=== PATIENT | female | born 1990 | race African-American/Black ===

== ENCOUNTER 2023-05-05 19:51 | Emergency (ER) | payer SELFPAY ==
[2023-05-05 19:52] VITALS: BP 145/86; PULSE 91; RESP 24; TEMP 36; O2SAT 100; BMI 35.2
--- NOTE | 2023-05-05 21:23 | EX.ED.DYSGE1 ---
HPI History of Present Illness Chief Complaint: Dental Informant: patient Narrative Narrative: Patient presenting with a tooth ache right maxillary for the past 3 days. Gradual in onset. No obvious etiology. She states it is radiating back into her right posterior aspect of her face, head with a headache, sometimes in the ear but she has no hearing changes or otorrhea. States the pain was really worse today. She denies any rhinorrhea or congestion. No fevers or chills. No purulent nasal discharge or other discharge from her mouth or bleeding. No sore throat. PFSH PFSH Medical History Anxiety Asthma Depression GERD (gastroesophageal reflux disease) Irregular heart beat Kidney stones Migraines Smoker Home Medications amoxicillin 875 mg-potassium clavulanate 125 mg tablet 875 mg (0.875 x 875-125 mg) PO Q12H #20 TABLETS 05/05/23 [Rx Last Taken Unknown] Allergy/AdvReac Type Severity Reaction Status Date / Time aspirin Allergy Hives Verified 05/05/23 19:54 iodine Allergy Hives Verified 05/05/23 19:54 Sulfa (Sulfonamide Allergy Hives Verified 05/05/23 19:54 Antibiotics) Surgical History History of History of cholecystectomy Social History Smoking Status: Current every day smoker ROS ROS ED Constitutional Constitutional ED: Denies chills or fever(s) Eyes Eyes: Denies change in vision or double vision ENT ENT ED: Reports as per HPI, dental pain, facial pain and sinus pain; Denies throat swelling Cardiovascular Cardiovascular: Denies chest pain or palpitations Respiratory/Chest Respiratory/Chest: Denies cough or dyspnea Gastrointestinal Gastrointestinal: Denies abdominal pain, nausea or vomiting Integumentary Denies abscess or rash Neurologic Neurologic: Reports headache(s); Denies paresthesias or weakness EXAM Physical Exam Const Vital Signs: 05/05/23 19:52 Temperature 96.8 F L Temperature Source Temporal Pulse Rate 91 Respiratory Rate 24 H Blood Pressure 145/86 H Blood Pressure Mean 105 Pulse Ox 100 Oxygen Delivery Method Room Air Positive well nourished and well developed General Appearance ED: well developed and NAD HEENT HEENT Narrative: Patient does have point tenderness in 1 particular area of the right maxillary sinus which is normal-appearing externally. No nasal purulent discharge. No significant edema. Dentition is all normal appearing, gingiva is all normal appearing, and there is no dental tenderness on percussion. In palpating superior to the dentition in the periapical areas, there is no tenderness or abscess. She has no trismus. The rest of intraoral exam is normal including normal Stensen's duct bilaterally, and there is no tenderness at the parotid or swelling there. Throat: posterior oropharynx normal Eyes PERRL and EOMs intact bilaterally Neck no lymphadenopathy and supple Resp normal respiratory effort Neuro oriented x3 and CN's II-XII intact bilaterally Sensorium / Orientation: alert Gait (Neuro): normal gait Psych mental status grossly normal and thought process normal Skin no rashes or lesions noted and no wounds MDM MDM MDM Narrative Medical decision making narrative: As I discussed with the patient I do not think that this is a dental in origin. I think she has maxillary sinusitis for unknown reason along with a sinus headache. I think it is reasonable to treat her empirically with an antibiotic, but I also recommend a decongestant to see if she can drain the sinus which may give her quicker relief she is comfortable with that plan. Nursing discussed with me at discharge that the patient then told her about black nipple discharge that she has been having for months. She does not have a doctor in the region. She was referred to the next doctor on the unassigned list for primary care as well as SENIOR ATTORNEY regarding the nipple discharge Discharge Plan Triage Chief Complaint: Dental ED Provider: Giovani Ibrahim Dx/Rx/DC Orders Clinical Impression: Sinus headache, Nipple discharge, Right maxillary sinusitis Instructions: ED Sinus Headache, ED Sinusitis (Antibiotic Treatment) Prescriptions: New amoxicillin-pot clavulanate [amoxicillin-pot clavulanate] 875-125 mg tablet 875 mg PO Q12H Qty: 20 0RF Primary Care Provider: Care Physician,No Primary Referrals: Elle Quiroga MD [Med Staff - Active Staff] - (SENIOR ATTORNEY) Abram Carvajal MD [Med Staff - Active Staff] - Care Physician,No Primary [Primary Care Provider] - Activity Restrictions/Additional Instructions: May try using a nasal spray containing oxymetazoline or phenylephrine, spray 2 sprays up into your right nostril, after 10 or 15 minutes, hold your nose shut and blow gently into you feel your ears gently pop, and hold for a breath as long as you can, and this may help pop your sinus open and allow quick drainage and pain relief. Disposition Disposition: Home, Self Care
[2023-05-05] MEDS: Amox/Clavulanate 875 MG Tablet PO (21:29)
[2023-05-05 22:06] VITALS: BP 135/80; PULSE 79; RESP 16; O2SAT 99
== END 2023-05-05 22:07 | disposition home or self-care (01) ==
PROVIDERS: Emergency Provider Emergency Medicine; Visit Provider Emergency Medicine
DX: J32.0 Chronic maxillary sinusitis (principal); N64.52 Nipple discharge; F17.200 Nicotine dependence, unspecified, uncomplicated
CPT/HCPCS: 99282

== ENCOUNTER 2023-05-29 15:06 | Emergency (ER) | payer MEDICAID, SELFPAY ==
[2023-05-29 15:07] VITALS: BP 137/98; PULSE 107; RESP 20; TEMP 37.2; O2SAT 98; BMI 35.8
--- NOTE | 2023-05-29 15:21 | EX.ED.DYSGE1 ---
HPI History of Present Illness Chief Complaint: Dental Detail of Chief Complaint: Sinus infection and dental pain Informant: patient Narrative Narrative: Patient presents secondary to right maxillary sinus infection as well as left dental pain. She states she was seen here in the ER about 2 and half weeks ago and diagnosed with this finding you situs. She was treated with Augmentin. She reported no improvement after the antibiotic but did not seek further treatment. Earlier this week she had a root canal on one of the molars for her left maxillary surface. She has had some increased pressure to that side and is not currently on an antibiotic. She states her pain is doing well with Tylenol and ibuprofen, but is concerned that she needs an antibiotic. She is using Afrin nasal spray. She reports a single fever with temperature measurement of 100. PFSH PFSH Medical History Anxiety Asthma Depression GERD (gastroesophageal reflux disease) Irregular heart beat Kidney stones Migraines Smoker Home Medications amoxicillin 875 mg-potassium clavulanate 125 mg tablet 875 mg (0.875 x 875-125 mg) PO Q12H #20 TABLETS 05/05/23 [Rx Last Taken Unknown] cefdinir 300 mg capsule 300 mg PO BID #20 caps 05/29/23 [Rx Last Taken Unknown] Allergy/AdvReac Type Severity Reaction Status Date / Time aspirin Allergy Hives Verified 05/29/23 15:07 iodine Allergy Hives Verified 05/29/23 15:07 Sulfa (Sulfonamide Allergy Hives Verified 05/29/23 15:07 Antibiotics) Surgical History History of History of cholecystectomy Social History Smoking Status: Current every day smoker tobacco type: cigarettes ROS ROS ED Constitutional Constitutional ED: Denies chills or fever(s) ENT ENT ED: Reports other Details: Right maxillary sinus pressure. Left-sided dental pain. ; Denies rhinorrhea or sore throat Cardiovascular Cardiovascular: Denies chest pain Respiratory/Chest Respiratory/Chest: Denies cough or dyspnea Gastrointestinal Gastrointestinal: Denies abdominal pain, nausea or vomiting Neurologic Neurologic: Denies headache(s) Psychiatric Psychiatric: Denies anxiety or depression Allergic/Immunologic Allergic/Immunologic ED: Denies lip swelling or urticaria EXAM Physical Exam Const Vital Signs: 05/29/23 15:07 Temperature 99 F Temperature Source Temporal Pulse Rate 107 H Respiratory Rate 20 H Blood Pressure 137/98 H Blood Pressure Mean 111 Pulse Ox 98 Oxygen Delivery Method Room Air Positive well nourished and well developed General Appearance ED: well developed HEENT HEENT Narrative: No facial edema or erythema. Intraoral examination reveals no significant gum edema. Posterior pharynx exam is normal. Patient does have significant tenderness with palpation of the right maxilla. Eyes EOMs intact bilaterally Chest Wall inspection of chest normal and palpation of chest normal Resp normal respiratory effort and clear to auscultation bilaterally Cardio regular rate and regular rhythm GI non-tender Palpation: soft Neuro oriented x3 and no sensory deficits noted Motor Exam: strength 5/5 throughout Psych mental status grossly normal Skin no rashes or lesions noted MDM MDM MDM Narrative Medical decision making narrative: Patient was recently on a course of Augmentin and reported no significant improvement in her sinus symptoms. Will treat her with Omnicef to cover both oral and sinus organisms. She will follow-up with her dentist and I will also give her information for ENT referral if her sinusitis is not improving. Discharge Plan Triage Chief Complaint: Dental ED Provider: Morena Michaels Dx/Rx/DC Orders Clinical Impression: Sinusitis, Pain, dental Instructions: ED Dental Pain, ED Sinusitis (Antibiotic Treatment) Prescriptions: New cefdinir 300 mg capsule 300 mg PO BID Qty: 20 0RF No Action amoxicillin-pot clavulanate [amoxicillin-pot clavulanate] 875-125 mg tablet 875 mg PO Q12H Qty: 20 0RF Primary Care Provider: Care Physician,No Primary Referrals: Carlos Avila MD [Med Staff - Active Staff] - As Needed Care Physician,No Primary [Primary Care Provider] - Activity Restrictions/Additional Instructions: If your sinus symptoms are not improved with the second round of antibiotics, you can follow-up with ENT. Disposition Disposition: Home, Self Care
== END 2023-05-29 15:43 | disposition home or self-care (01) ==
PROVIDERS: Emergency Provider Emergency Medicine; Visit Provider Emergency Medicine
DX: K08.89 Other specified disorders of teeth and supporting structures (principal); J32.9 Chronic sinusitis, unspecified; F17.210 Nicotine dependence, cigarettes, uncomplicated
CPT/HCPCS: 99282

== ENCOUNTER 2023-10-28 04:12 | Emergency (ER) | payer MEDICAID, SELFPAY ==
[2023-10-28 04:12] VITALS: BP 142/92; PULSE 91; RESP 16; TEMP 36.4; O2SAT 98; BMI 38.2
--- NOTE | 2023-10-28 04:40 | EDS_ITS ---
HPI History of Present Illness Chief Complaint: Dental Informant: patient and spouse/S.O. Narrative Narrative: Patient is 33-year-old female who reports a past medical history of recurrent dental infections as well as depression anxiety and asthma. She states she has a broken upper right tooth and she is scheduled to see a dentist in the next few weeks. However the last few days she has been having increased right upper dental pain and some facial swelling and has concern for developing infection and therefore comes in for evaluation PFS PFS Medical History Anxiety Asthma Depression GERD (gastroesophageal reflux disease) Irregular heart beat Kidney stones Migraines Smoker Home Medications ?Medication ?Instructions ?Recorded ?Last Taken ?Type amoxicillin 875 mg-potassium 875 mg PO Q12H #20 TABLETS 05/05/23 Unknown Rx clavulanate 125 mg tablet cefdinir 300 mg capsule 300 mg PO BID #20 caps 05/29/23 Unknown Rx clindamycin HCl 300 mg capsule 300 mg PO 4X/DAY 10 days #40 10/28/23 Unknown Rx (Cleocin HCl) CAPSULES Allergy/AdvReac Type Severity Reaction Status Date / Time aspirin Allergy Hives Verified 10/28/23 04:18 iodine Allergy Hives Verified 10/28/23 04:18 Sulfa (Sulfonamide Allergy Hives Verified 10/28/23 04:18 Antibiotics) Surgical History History of History of cholecystectomy Social History Smoking Status: Current every day smoker tobacco type: cigarettes ROS ROS ED Constitutional Constitutional ED: Denies chills or fever(s) ENT ENT ED: Reports other Details: Positive dental pain ; Denies sore throat Cardiovascular Cardiovascular: Denies chest pain Respiratory/Chest Respiratory/Chest: Denies cough or dyspnea Gastrointestinal Gastrointestinal: Denies abdominal pain, diarrhea, nausea or vomiting Genitourinary Genitourinary ED: Denies dysuria Musculoskeletal Musculoskeletal: Denies neck pain Integumentary Denies rash Neurologic Neurologic: Denies headache(s) Hematologic/Lymphatic Hematologic/Lymphatic: Denies easy bleeding or easy bruising Allergic/Immunologic Allergic/Immunologic ED: Denies mouth swelling or tongue swelling EXAM Physical Exam Const Vital Signs: 10/28/23 04:12 10/28/23 05:23 Temperature 97.6 F L 97.9 F Temperature Source Temporal Pulse Rate 91 81 Respiratory Rate 16 16 Blood Pressure 142/92 H 140/68 H Blood Pressure Mean 108 92 Pulse Ox 98 99 Oxygen Delivery Method Room Air Positive well nourished and well developed General Appearance ED: well developed; Negative for pallor HEENT Reports moist mucous membranes HEENT Narrative: Dental caries noted without obvious dental abscess No tongue or lip swelling no oral lesions no airway edema or compromise No findings of ANUG Eyes PERRL and EOMs intact bilaterally Neck supple Neck Narrative: No brawny edema in the submental space to suggest Anoop's angina Resp normal respiratory effort and clear to auscultation bilaterally Cardio regular rate and regular rhythm Extremity normal to inspection Neuro oriented x3, CN's II-XII intact bilaterally and no sensory deficits noted Sensorium / Orientation: alert Motor Exam: strength 5/5 throughout Psych mental status grossly normal Skin no rashes or lesions noted General Skin Exam: Negative for jaundice or pallor MDM MDM MDM Narrative Medical decision making narrative: Patient presented ER hypertensive otherwise with stable vitals. History and exam is consistent with dental caries leading to recurrent dental infection. She has no findings of ANUG or Anoop's angina on exam there is no signs of posterior pharynx infection such as strep throat or peritonsillar abscess and she has no airway edema or compromise and therefore do not feel there is need for imaging or laboratory studies. Patient was started on antibiotics secondary to high likelihood of dental infection and she was given a dental block for pain as documented below. However this time as there is no signs of systemic infection or respiratory compromise she is safe for discharge Patient was given a right superior alveolar dental block using 1.5 mL of 2% lidocaine with epinephrine and 1.5 mL of 0.5% Marcaine. Patient achieved good anesthesia with the injection and tolerated procedure well without complication History & Record Review Discussion w/independent historian: Patient and Significant other Discharge Plan Triage Chief Complaint: Dental ED Provider: Darinel Larson Dx/Rx/DC Orders Clinical Impression: Dental infection, Dental caries, History of asthma, History of migraine Prescriptions: New clindamycin HCl [Cleocin HCl] 300 mg capsule 300 mg PO 4X/DAY 10 Days Qty: 40 0RF No Action cefdinir 300 mg capsule 300 mg PO BID Qty: 20 0RF amoxicillin-pot clavulanate [amoxicillin-pot clavulanate] 875-125 mg tablet 875 mg PO Q12H Qty: 20 0RF Primary Care Provider: Care Physician,No Primary Referrals: Care Physician,No Primary [Primary Care Provider] - Activity Restrictions/Additional Instructions: Please follow-up with your dentist for definitive treatment but take the antibiotics as directed to resolve any developing infection. Return to the ER should you have any further concerns Print Language: Spanish Disposition Disposition: Home, Self Care Discharge Date/Time: 10/28/23 05:24
[2023-10-28] MEDS: Lidocaine 2% /Epi 1:100 (20ml) 20 ML VIAL INFILT (04:50)
[2023-10-28] MEDS: Bupivacaine Mpf 0.5% 30 ML VIAL INFILT (04:50)
[2023-10-28] MEDS: Clindamycin HCl 150 MG Capsule 300 MG PO (04:50)
[2023-10-28 05:23] VITALS: BP 140/68; PULSE 81; RESP 16; TEMP 36.6; O2SAT 99
== END 2023-10-28 05:24 | disposition home or self-care (01) ==
PROVIDERS: Emergency Provider Emergency Medicine; Visit Provider Emergency Medicine
DX: K04.7 Periapical abscess without sinus (principal); K02.9 Dental caries, unspecified; J45.909 Unspecified asthma, uncomplicated; F17.210 Nicotine dependence, cigarettes, uncomplicated
CPT/HCPCS: 64999; 99282

== ENCOUNTER 2023-11-07 22:42 | Emergency (ER) | payer MEDICAID, SELFPAY ==
[2023-11-07 22:44] VITALS: BP 132/91; PULSE 86; RESP 18; TEMP 36.9; O2SAT 99; BMI 34.6
--- NOTE | 2023-11-07 23:14 | EX.ED.DYSGE1 ---
HPI History of Present Illness Chief Complaint: Dental Informant: patient Narrative Narrative: Patient is a 33-year-old female who reports she has a broken right molar. She cannot get into see a dentist until next month. She states has been infected over the past 1 to 2 months. She was seen 1 to 2 weeks ago and placed on clindamycin. She states she has been taking the antibiotic as directed but there does not seem to be improvement of symptoms as she has had persistent pain and swelling. She denies any trauma any fever and difficulty breathing or swallowing but secondary to persistent pain and swelling returns for repeat evaluation. [facility] Medical History Depression Anxiety Kidney stones GERD (gastroesophageal reflux disease) Smoker Asthma Irregular heart beat Migraines Home Medications ?Medication ?Instructions ?Recorded ?Last Taken ?Type amoxicillin 875 mg-potassium 875 mg PO Q12H #20 TABLETS 05/05/23 Unknown Rx clavulanate 125 mg tablet cefdinir 300 mg capsule 300 mg PO BID #20 caps 05/29/23 Unknown Rx clindamycin HCl 300 mg capsule 300 mg PO 4X/DAY 10 days #40 10/28/23 Unknown Rx (Cleocin HCl) CAPSULES amoxicillin 875 mg-potassium 1 tab PO BID 10 days #20 tabs 11/07/23 Unknown Rx clavulanate 125 mg tablet oxycodone-acetaminophen 5 mg-325 1 tab PO Q6H PRN pain 3 days #12 11/07/23 Unknown Rx mg tablet (Percocet) tabs Allergy/AdvReac Type Severity Reaction Status Date / Time aspirin Allergy Hives Verified 11/07/23 22:53 Sulfa (Sulfonamide Allergy Hives Verified 11/07/23 22:53 Antibiotics) Family History no significant family his Surgical History History of History of cholecystectomy Social History Smoking Status: Current every day smoker tobacco type: cigarettes ROS ROS ED Constitutional Constitutional ED: Denies chills or fever(s) ENT ENT ED: Reports other Details: Positive dental pain and facial swelling ; Denies sore throat Cardiovascular Cardiovascular: Denies chest pain Respiratory/Chest Respiratory/Chest: Denies cough or dyspnea Gastrointestinal Gastrointestinal: Denies abdominal pain, diarrhea, nausea or vomiting Genitourinary Genitourinary ED: Denies dysuria Musculoskeletal Musculoskeletal: Denies myalgias or neck pain Integumentary Denies rash Neurologic Neurologic: Denies headache(s) Hematologic/Lymphatic Hematologic/Lymphatic: Denies easy bleeding or easy bruising Allergic/Immunologic Allergic/Immunologic ED: Denies mouth swelling or tongue swelling EXAM Physical Exam Const Vital Signs: 11/07/23 22:44 Temperature 98.5 F Temperature Source Temporal Pulse Rate 86 Respiratory Rate 18 Blood Pressure 132/91 H Blood Pressure Mean 104 Pulse Ox 99 Oxygen Delivery Method Room Air Positive well nourished and well developed General Appearance ED: well developed HEENT Reports moist mucous membranes HEENT Narrative: Patient has dental caries/a broken upper right molar as stated without oral lesions tongue or lip swelling airway edema or compromise or obvious dental abscess No signs of ANUG Eyes PERRL and EOMs intact bilaterally Neck supple Neck Narrative: Positive anterior cervical lymphadenopathy noted No brawny edema in the submental space to suggest Anoop's angina Resp normal respiratory effort and clear to auscultation bilaterally Cardio regular rate and regular rhythm Extremity normal to inspection Neuro oriented x3, CN's II-XII intact bilaterally and no sensory deficits noted Sensorium / Orientation: alert Motor Exam: strength 5/5 throughout Psych mental status grossly normal Skin no rashes or lesions noted Skin Narrative: Soft tissue swelling of the right anterior cheek without overlying erythema or warmth MDM MDM MDM Narrative Medical decision making narrative: Patient arrived to the ER hypertensive otherwise with stable vital. History and exam is consistent with dental caries leading to underlying dental infection. There is no obvious abscess on the gingival surface to warrant incision and drainage. She does not have physical exam findings to suggest Anoop's angina and there are no signs of ANUG present on exam either. As she was recently antibiotics we did discuss potentially imaging and/or blood work but as she has no signs of respiratory distress or airway compromise and she is afebrile and has not spiked fevers at home we will forego testing. Patient will have her antibiotic changed to Augmentin which has helped her in the past and she is otherwise safe for discharge The patient was given a right superior alveolar dental block using 1.5 mL of 1% lidocaine with epinephrine and 1.5 mL of 0.5% Marcaine. Patient achieved good anesthesia with the injection and tolerated procedure well without complication History & Record Review Discussion w/independent historian: Patient Discharge Plan Triage Chief Complaint: Dental ED Provider: Darinel Larson Dx/Rx/DC Orders Clinical Impression: Dental infection, Dental caries, Hypertension Instructions: ED Dental Pain, ED Dental Abscess Prescriptions: New amoxicillin-pot clavulanate 875-125 mg tablet 1 tab PO BID 10 Days Qty: 20 0RF oxycodone-acetaminophen [Percocet] 5-325 mg tablet 1 tab PO Q6H PRN (Reason: pain) 3 Days Qty: 12 0RF No Action cefdinir 300 mg capsule 300 mg PO BID Qty: 20 0RF amoxicillin-pot clavulanate [amoxicillin-pot clavulanate] 875-125 mg tablet 875 mg PO Q12H Qty: 20 0RF clindamycin HCl [Cleocin HCl] 300 mg capsule 300 mg PO 4X/DAY 10 Days Qty: 40 0RF Primary Care Provider: Care Physician,No Primary Referrals: Care Physician,No Primary [Primary Care Provider] - Activity Restrictions/Additional Instructions: Please keep your appointment with your dentist as directed for definitive treatment of your dental caries and infected tooth. Take antibiotic as directed to resolve the infection in the meantime and return to the ER should you have any further concerns Print Language: Prydeinig Disposition Disposition: Home, Self Care Discharge Date/Time: 11/07/23 23:42
[2023-11-07] MEDS: Amox/Clavulanate 875 MG Tablet PO (23:19)
[2023-11-07] MEDS: Bupivacaine Mpf 0.5% 30 ML VIAL 10 ML INFILT (23:27)
== END 2023-11-07 23:42 | disposition home or self-care (01) ==
PROVIDERS: Emergency Provider Emergency Medicine; Visit Provider Emergency Medicine
DX: K04.7 Periapical abscess without sinus (principal); K02.9 Dental caries, unspecified; I10 Essential (primary) hypertension; F17.210 Nicotine dependence, cigarettes, uncomplicated
CPT/HCPCS: 64999; 99282

== ENCOUNTER 2024-01-12 16:19 | Emergency (ER) | payer MEDICAID, SELFPAY ==
[2024-01-12 16:20] VITALS: BP 146/84; PULSE 86; RESP 15; TEMP 36.2; O2SAT 99; BMI 34.5
--- NOTE | 2024-01-12 16:33 | EX.ED.UPPERE ---
HPI History of Present Illness Chief Complaint: [facility] Medical History Depression Anxiety Kidney stones GERD (gastroesophageal reflux disease) Smoker Asthma Irregular heart beat Migraines Home Medications ?Medication ?Instructions ?Recorded ?Last Taken ?Type amoxicillin 875 mg-potassium 875 mg PO Q12H #20 TABLETS 05/05/23 Unknown Rx clavulanate 125 mg tablet cefdinir 300 mg capsule 300 mg PO BID #20 caps 05/29/23 Unknown Rx clindamycin HCl 300 mg capsule 300 mg PO 4X/DAY 10 days #40 10/28/23 Unknown Rx (Cleocin HCl) CAPSULES amoxicillin 875 mg-potassium 1 tab PO BID 10 days #20 tabs 11/07/23 Unknown Rx clavulanate 125 mg tablet oxycodone-acetaminophen 5 mg-325 1 tab PO Q6H PRN pain 3 days #12 11/07/23 Unknown Rx mg tablet (Percocet) tabs doxycycline hyclate 100 mg capsule 100 mg PO BID #14 caps 01/12/24 Unknown Rx Allergy/AdvReac Type Severity Reaction Status Date / Time aspirin Allergy Hives Verified 01/12/24 16:21 Sulfa (Sulfonamide Allergy Hives Verified 01/12/24 16:21 Antibiotics) Surgical History History of History of cholecystectomy Social History Smoking Status: Current every day smoker tobacco type: cigarettes EXAM Physical Exam Const Vital Signs: 01/12/24 16:20 Temperature 97.2 F L Temperature Source Temporal Pulse Rate 86 Respiratory Rate 15 Blood Pressure 146/84 H Blood Pressure Mean 104 Pulse Ox 99 Oxygen Delivery Method Room Air MDM MDM MDM Narrative Medical decision making narrative: HISTORY OF PRESENT ILLNESS: 33-year-old female presents with 4 finger edema and redness. She states this been ongoing for the past 3 to 4 days. Notes 2 days ago she took a sterile needle and lanced the area of swelling and it drained green fluid. She notes continued drainage since then. No she is not using salt baths but symptoms have worsened over the last day to 2 days. Denies fever or history of diabetes. REVIEW OF SYSTEMS: Pertinent positives: Finger pain and swelling Pertinent negatives: Numbness, tingling, loss sensation PHYSICAL EXAM: Nursing triage notes reviewed, Vital signs reviewed Constitutional: please see mdm Neuro: intact 5/5 strength with ok sign (median), intact finger abduction (ulnar) intact wrist extension (radial n). Intact sensation in the radial, ulnar, and median nerve distributions. Skin: Erythema noted over the distal fourth digit of the right hand, no obvious trauma, MEDICAL DECISION MAKING: Chief Complaint: Finger swelling [facility] [place] Narrative: Patient was hemodynamically stable, afebrile and nontoxic-appearing. Exam consistent with paronychia I considered the following differential diagnosis: Paronychia, felon, cellulitis Will give MRSA coverage with doxycycline for 7 days given sulfa allergy. First dose of antibiotic was given here in the emergency department gave strict return precautions and follow-up instructions. The patient and/or family, caregivers express understanding. The patient and/or family, caregivers agrees with the plan. Shared decision making: I will have a discussion with the patient and or visitors regarding risk/benefits of further testing or admission. They will be made aware of of the risk/benefits inherent in this decision they will be given the opportunity to voice understanding. Total critical care time today provided was at least 0 minutes. This excludes separately billable procedures. Critical care time (if documented) is secondary to the patient having high probability of clinically significant/life threatening deterioration in the patient's condition which required my urgent intervention. Impression: 1. Finger. 2. Paronychia Dispo: Discharge home This note was generated with [email or web address] dictation software. It may contain incorrect words, spelling, and punctuation that were not noted in review of the chart prior to signing. Discharge Plan Triage Chief Complaint: Upper Extremity Injury ED Provider: Yash Caro Dx/Rx/DC Orders Instructions: ED Paronychia of the Finger or Toe Prescriptions: New doxycycline hyclate 100 mg capsule 100 mg PO BID Qty: 14 0RF No Action cefdinir 300 mg capsule 300 mg PO BID Qty: 20 0RF amoxicillin-pot clavulanate [amoxicillin-pot clavulanate] 875-125 mg tablet 875 mg PO Q12H Qty: 20 0RF clindamycin HCl [Cleocin HCl] 300 mg capsule 300 mg PO 4X/DAY 10 Days Qty: 40 0RF amoxicillin-pot clavulanate 875-125 mg tablet 1 tab PO BID 10 Days Qty: 20 0RF oxycodone-acetaminophen [Percocet] 5-325 mg tablet 1 tab PO Q6H PRN (Reason: pain) 3 Days Qty: 12 0RF Primary Care Provider: Care Physician,No Primary Referrals: Oren Ferrer MD [Med Staff - Active Staff] - Care Physician,No Primary [Primary Care Provider] - Activity Restrictions/Additional Instructions: Thank you for trusting us with your care today! Please take Tylenol (2 pills, 650 mg), ibuprofen (2 pills, 400 mg) every 6 hours as needed for pain and fever control. Please take antibiotic until course complete. Please use warm compress or warm soaks to encourage drainage. If you develop complete swelling of your entire finger, vomiting, chills, fever or other systemic signs please return immediately. Please return to the emergency department if your symptoms change or worsen. Please follow with your primary care physician for further outpatient evaluation and management. If your symptoms do not completely resolve you can follow-up with a hand surgeon as listed above Dr. Ferrer. Print Language: Pashto Disposition Disposition: Home, Self Care
[2024-01-12] MEDS: Doxycycline 100 MG CAPSULE PO (16:46)
[2024-01-12 17:00] VITALS: BP 130/70; PULSE 85; RESP 16; TEMP 36.7; O2SAT 99
== END 2024-01-12 17:00 | disposition home or self-care (01) ==
LOC: ED 16:55
PROVIDERS: Emergency Provider Emergency Medicine; Visit Provider Emergency Medicine
DX: L03.011 Cellulitis of right finger (principal); F17.210 Nicotine dependence, cigarettes, uncomplicated
CPT/HCPCS: 99283

== ENCOUNTER 2025-05-05 14:02 | Emergency (ER) | payer MEDICAID, SELFPAY ==
[2025-05-05 14:04] VITALS: BP 148/113; PULSE 98; RESP 16; TEMP 37.1; O2SAT 99; BMI 36.3
[2025-05-05 14:25] VITALS: O2SAT 99
--- NOTE | 2025-05-05 14:28 | NURSING ---
patient complaining of 7/10 headache and 9/10 neck pain and stiffness. congestion for 3 days accompanied by non productive cough.
--- NOTE | 2025-05-05 14:53 | EX.ED.VIS.UR ---
HPI HPI - URI History of Present Illness Chief Complaint: Shortness of Breath Informant: patient Onset/Context/Timing Onset: Days Context: Gradual Onset Timing: Continuous Current Severity: Mild Maximum Severity: Mild Associated Symptoms Associated Symptoms: Positive for Nasal Congestion, Headache, Myalgias and Nonproductive cough Narrative Narrative: 35-year-old female with past medical history of asthma and kidney stones. Said since [facility] she has felt sick. Nasal congestion nonproductive cough. Fever and chills with a temperature as high as 101.5. 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 States many of the residents there are currently ill. She denies vomiting or diarrhea. She denies dysuria. Prior similar symptoms: Yes Recent Illness/Hospitalization: No ROS ROS ED ROS Narrative Nonproductive cough. Fever and chills. Body aches. Constitutional Constitutional ED: Reports chills and fever(s) Eyes Eyes: Denies blurry vision ENT ENT ED: Reports rhinorrhea; Denies ear pain or sore throat Cardiovascular Cardiovascular: Denies chest pain Respiratory/Chest Respiratory/Chest: Reports cough and dyspnea; Denies dyspnea on exertion Gastrointestinal Gastrointestinal: Denies abdominal pain, diarrhea, nausea or vomiting Genitourinary Genitourinary ED: Denies dysuria or hematuria Musculoskeletal Musculoskeletal: Denies arthralgias Integumentary Denies abscess Neurologic Neurologic: Reports headache(s) Psychiatric Psychiatric: Denies anxiety or depression Endocrine Endocrinology: Denies cold intolerance Hematologic/Lymphatic Hematologic/Lymphatic: Denies easy bleeding Allergic/Immunologic Allergic/Immunologic ED: Denies mouth swelling, tongue swelling or urticaria PFSH PFS Medical History Depression Anxiety Kidney stones GERD (gastroesophageal reflux disease) Smoker Asthma Irregular heart beat Migraines Home Medications ?Medication ?Instructions ?Recorded ?Last Taken ?Type amoxicillin 875 mg-potassium 875 mg PO Q12H #20 TABLETS 05/05/23 Unknown Rx clavulanate 125 mg tablet cefdinir 300 mg capsule 300 mg PO BID #20 caps 05/29/23 Unknown Rx clindamycin HCl 300 mg capsule 300 mg PO 4X/DAY 10 days #40 10/28/23 Unknown Rx (Cleocin HCl) CAPSULES amoxicillin 875 mg-potassium 1 tab PO BID 10 days #20 tabs 06/30/24 Unknown Rx clavulanate 125 mg tablet oxycodone-acetaminophen 5 mg-325 1 tab PO Q6H PRN pain 3 days #12 11/07/23 Unknown Rx mg tablet (Percocet) tabs doxycycline hyclate 100 mg capsule 100 mg PO BID #14 caps 01/12/24 Unknown Rx Allergy/AdvReac Type Severity Reaction Status Date / Time aspirin Allergy Hives Verified 05/05/25 14:05 Sulfa (Sulfonamide Allergy Hives Verified 05/05/25 14:05 Antibiotics) Surgical History History of History of cholecystectomy Social History Smoking Status: Current every day smoker tobacco type: cigarettes EXAM Physical Exam Narrative Exam Narrative: Well-appearing 35-year-old female. Vital signs are stable afebrile does not look septic toxic no acute distress. Pulse ox 99% on room air no hypoxia. H EENT exam pupils round react to light. Extra motions are intact. No facial droop. No frontal or maxillary sinus tenderness. Moist mucous membranes. Posterior pharynx unremarkable. No trouble swallowing or breathing. No stridor or drooling. TMs unremarkable. Neck nontender no lymphadenopathy. No meningismus. Able to touch chin to chest. Back nontender. Lungs clear to auscultation bilaterally. Heart regular rhythm rate about 95 no murmur. Chest wall ribs nontender. Abdomen soft nontender. Moving all 4 extremities. Normal range of motion. Normal strength. Nontender no edema. Neurologically she is awake alert. Answering questions following commands. Normal neurologic exam. Const Vital Signs: 05/05/25 14:04 05/05/25 14:25 05/05/25 16:02 Temperature 98.8 F Temperature Source Oral Pulse Rate 98 83 Respiratory Rate 16 Respiratory Effort Normal Respiratory Depth Normal Respiratory Pattern Normal Blood Pressure 148/113 H Blood Pressure Mean 124 Pulse Ox 99 96 Oxygen Delivery Method Room Air Room Air Room Air MDM MDM MDM Narrative Medical decision making narrative: 35-year-old suspect viral URI. She did want me to check her for COVID and flu which have been sent. Chest x-ray to rule out pneumonia. Otherwise her exam is benign she be given some Tylenol. She does not need lab work. Repeat exam patient is doing well at 3:55 PM. Resting comfortably. We discussed her negative chest x-ray. Awaiting the COVID and flu swab. Although her report is negative she will be treated as a viral syndrome. History & Record Review Discussion w/independent historian: Patient Additional record(s) reviewed:: Prior outpatient record, Prior ED visit and Prior labs Lab Data Attestation: I reviewed the patient's lab results. Lab results narrative: COVID, flu and RSV are all negative. Radiography Chest X-Ray - ED: 2 View, Read by ED Physician, Normal, Heart, Lungs, Mediastinum, Bony Structures, No Acute Disease and Chronic Changes Diagnostic Testing: Clinical Impression(s) from Imaging Studies Chest X-Ray 05/05/25 15:10 IMPRESSION: No focal airspace consolidation. Minimal peribronchial cuffing which can be seen with bronchiolitis/viral process. Reading Location: [facility] Chest x-ray, 2 views, AP and lateral, interpreted both by myself and the radiologist. Shows normal cardiac silhouette. Bronchial cuffing consistent with a viral syndrome. No pneumonia. Normal lung sidhu otherwise. No effusion. No chronic changes. Discharge Plan Triage Chief Complaint: Shortness of Breath ED Provider: Darci Joyce Dx/Rx/DC Orders Clinical Impression: Viral syndrome Instructions: ED Viral Syndrome (Adult) Prescriptions: No Action cefdinir 300 mg capsule 300 mg PO BID Qty: 20 0RF amoxicillin-pot clavulanate [amoxicillin-pot clavulanate] 875-125 mg tablet 875 mg PO Q12H Qty: 20 0RF doxycycline hyclate 100 mg capsule 100 mg PO BID Qty: 14 0RF clindamycin HCl [Cleocin HCl] 300 mg capsule 300 mg PO 4X/DAY 10 Days Qty: 40 0RF amoxicillin-pot clavulanate 875-125 mg tablet 1 tab PO BID 10 Days Qty: 20 0RF oxycodone-acetaminophen [Percocet] 5-325 mg tablet 1 tab PO Q6H PRN (Reason: pain) 3 Days Qty: 12 0RF Primary Care Provider: Dennise Parson NP Referrals: Care Physician,No Primary [Non-Staff, Medical] Dennise Parson NP, [facility] [employer] [employer] [Primary Care Provider, Medical] - 1 Week if not improving Activity Restrictions/Additional Instructions: Plenty of fluids and rest. Alternate Motrin and Tylenol for body aches and any fever. Follow-up with your primary care provider if not improving or return if worse. Print Language: Qatari Disposition Disposition: Home, Self Care
--- NOTE | 2025-05-05 15:10 | RAD_ITS ---
PROCEDURE: CHEST PA AND LATERAL 05/05/2025 REASON FOR EXAM: COUGH TECHNIQUE: Procedure Code: RADCXR Modality: DX Procedure: CHEST PA AND LATERAL COMPARISON: None FINDINGS: Lungs are clear. There may be minimal peribronchial cuffing present. Cardiomediastinal silhouette is unremarkable. Osseous structures are within normal limits. RAD/Chest PA and Lateral IMPRESSION: No focal airspace consolidation. Minimal peribronchial cuffing which can be se en with bronchiolitis/viral process. Reading [facility]
--- OUTSIDE RECORDS SUMMARY | 2025-05-05 15:23 | XMS RPT_ITS | CCD ---
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 other health professional student that will be observing or involved in the sensitive examination for educational or training purposes was discussed with the Patient or Authorized Billing Services Manager. The Patient or Authorized Billing Services Manager has agreed to proceed with the sensitive examination. (Sensitive examination includes inspection and/or palpation of the breasts, pelvis, prostate and anorectal regions). EXAM: BP 136/86 Ht 5' 3.5 (1.61m) Wt 208 lb (94.3kg) LMP 09/09/2024 BMI 36.26 kg/(m2). GENERAL: pleasant female in no apparent distress HEENT: Normocephalic, atraumatic, mucus membranes moist, and no lesions NECK: Supple, full range of motion, no adenopathy, and thyroid normal DERMATOLOGY: Normal, without lesions, non-icteric, and non-hirsute BREAST: soft, non-tender, symmetric, no dominant mass, normal nipple-areolar complex, no lymphadenopathy, and no nipple discharge CHEST: Normal inspiratory effort ABDOMEN: soft, non-tender, and no masses PELVIC: external genitalia normal, normal Bartholin's glands, urethra, [place]'s glands, no vulvar lesions, no cervical lesions, good vaginal support, physiologic discharge present, normal appearing perineal body and perianal region BIMANUAL: uterus normal size, shape and consistency, no adnexal masses, and non-tender. Limited due to habitus. RECTOVAGINAL: deferred. NEURO: alert and oriented x3,exam grossly non-focal EXTREMITIES: normal ASSESSMENT/PLAN: 1) Health maintenance: Pap done with HPV. Breast Imaging - plans to follow up with high risk breast center. Phone number (more content not included)... Normal [facility] HBV surface Ag Ser Qlon 09-08 HBV surface Ag Ql (S) Negative Normal Negative [facility] Comment on above: Order Comment: Speci men Type: BLOOD SPECIMENOrdering Facility: [facility] Address: [address] [place] [address] Performed By: #### 7 3752-8, 27559-0, 5195-3 ####[facility] [id number] [place] [address] [place] HCV Ab Ser Qlon 09-28-2024 HCV Ab Ql (S) Negative Normal Negative [facility] Comment on above: Order Comment: Speci men Type: BLOOD SPECIMENOrdering Facility: [facility] Address: [address] [place] [address] Result Comment: The result suggests no evidence of infection with Hepatitis C virus. Should recent infection be suspected, repeat testing may be considered 4-6 weeks after this draw. Performed By: #### 1 6128-1 ####[facility] [id number] [place] [address] [place] HIGH RISK HUMAN PAPILLOMA MAGAN (HPV), PCR FOR DETECTION AND GENOTYPINGon 09-28-2024 HPV 16 Ag Ql (Unsp spec) Not detected Normal Not detected [facility] Comment on above: Order Comment: Speci men Type: FLUID SPECIMENOrdering Facility: [facility] Address: [address] [place] [address] Performed By: #### H PVHRT ####[facility] [id number] [place] [address] [place] HPV 18 Ag Ql (Unsp spec) Not detected Normal Not detected [facility] Comment on above: Order Comment: Speci men Type: FLUID SPECIMENOrdering Facility: [facility] Address: [address] [place] [address] Performed By: #### H PVHRT ####[facility] [id number] [place] [address] [place] HPV 31+33+35+39+45+51+52+5 6+58+59+66+68 DNA JL+probe Ql (Cvx) Not detected Normal Not detected [facility] Comment on above: Order Comment: Speci men Type: FLUID SPECIMENOrdering Facility: [facility] Address: [address] [place] [address] Result Comment: High Risk HPV Other Type includes HPV types 31, 33, 35, 39, 45, 51, 52, 56, 58, 59, 66 and 68. Performed By: #### H PVHRT ####[facility] LABCLIA [id number] [place] [address] [place] HIV 1+2 Ab IA Qlon 5 HIV 1 and 2 Ab IA.rapid Nom (S/P/Bld) Normal [facility] Comment on above: Order Comment: Speci men Type: BLOOD SPECIMENOrdering Facility: [facility] Address: [address] [place] [address] Result Comment: Test not indicated. Performed By: #### 7 3752-8, 96898-3, 5195-3 ####[facility] LABIA [id number] [place] [address] [place] HIV 1+2 Ab+HIV1 p24 Ag IA Ql Non-Reactive Normal Nonreactive [facility] Comment on above: Order Comment: Speci men Type: BLOOD SPECIMENOrdering Facility: [facility] Address: [address] [place] [address] Performed By: #### 7 3752-8, 15999-7, 5195-3 ####[facility] [id number] [place] [address] [place] HIV immunoassay testing algorithm interpretation (S/P/Bld) [Interp] Normal [facility] Comment on above: Order Comment: Speci men Type: BLOOD SPECIMENOrdering Facility: [facility] Address: [address] [place] [address] Result Comment: No e vidence of HIV-1 or HIV-2 infection. Should recent infection be suspected, repeat testing may be considered 2-3 weeks after this draw. [place] Rev. Code 3701.243(E): This information has been disclosed to you from confidential records protected from disclosure by state law. You shall make no further disclosure of this information without the specific, written, and informed release of the individual to whom it pertains or as otherwise permitted by state law. A general authorization for the release of medical or other information is not sufficient for the purpose of the release of HIV test results or diagnoses. Performed By: #### 7 3752-8, 85000-7, 5195-3 ####[facility] LABCLIA [id number] [address] [address] [facility] HbA1c (Bld)on 09-28-2024 Average glucose Estimated from glycated hemoglobin (Bld) [Mass/Vol] 97 mg/dL Normal [facility] Comment on above: Order Comment: Speci men Type: BLOOD SPECIMENOrdering Facility: [facility] Address: [address] [place] [address] Result Comment: eAG: (Estimated average glucose) is a calculated value from HgbA1c and is business services representative of the average blood glucose level in the last 2-3 month period. Performed By: #### 5 5454-3 ####[facility] LABCLIA [id number] [place] [id number] [facility] HbA1c (Bld) [Mass fraction] 5.0 % Normal 4.3-5.6 [facility] Comment on above: Order Comment: Speci men Type: BLOOD SPECIMENOrdering Facility: [facility] Address: [address] [place] [address] Result Comment: [place] Diabetes Association guidelines indicate that patients with HgbA1c in the range 5.7-6.4% are at increased risk for development of diabetes, and intervention by lifestyle modification may be beneficial. HgbA1c greater or equal to 6.5% is considered diagnostic of diabetes. Performed By: #### 5 5454-3 ####[facility] LABCLIA [id number] [place] [id number] [place] PAP TESTon 09-28-2024 ADEQUACY Normal [facility] Comment on above: Order Comment: Speci men Type: BLOOD SPECIMEN [facility] Address: [address] [place] [address] Result Comment: Sati sfactory for interpretation. Transformation zone present Performed By: #### 1 6128-1 #### [facility] CLIA [id number] [address] [place] [address] [place] CASE REPORT Normal [facility] Comment on above: Order Comment: Speci men Type: BLOOD SPECIMEN [facility] Address: [address] [place] [address] Result Comment: Gyne cologic Cytology Report Case: [id number] Authorizing Provider: Subhash Zamarripa APRN.DEVELOPMENT ARCHITECT Collected: 09/28/2024 10:33 AM Ordering Location: OB/Gynecology Received: 09/28/2024 02:49 PM First Screen: Morena Lucio CT, ASCP Pathologist: Justin Thornton MD Specimen: Pap Test, ThinPrep, Cervix Performed By: #### 1 6128-1 #### [facility] CLIA [id number] [address] [place] [address] [place] CLINICAL HISTORY, CYTOLOGY, SEPTIC CLEANER Routine Exam Normal [facility] Comment on above: Order Comment: Speci men Type: BLOOD SPECIMEN [facility] Address: [address] [place] [address] Performed By: #### 1 6128-1 #### [facility] CLIA [id number] [address] [place] [address] [place] FINAL PERFORMING LAB Normal [facility] Comment on above: Order Comment: Speci men Type: BLOOD SPECIMEN [facility] Address: [address] [place] [address] Result Comment: Tech nical component, prototype machine operator screening performed at: [facility], [address] [place] [address] CLIA: [id number] Diagnostic interpretation performed at: [facility], [address] [place] [address] CLIA# [id number] Home Inspector: He Bee MD Performed By: #### 1 6128-1 #### [facility] CLIA [id number] [address] [place] [address] [place] INTERPRETATION, CYTOLOGY, SEPTIC CLEANER Normal [facility] Comment on above: Order Comment: Speci men Type: BLOOD SPECIMEN [facility] Address: [address] [place] [address] Result Comment: Nega tive for intraepithelial lesion or malignancy. at 0941 EDT Performed By: #### 1 6128-1 #### [facility] CLIA [id number] [address] [place] [address] [place] LMP 09/09/2024 Normal [facility] Comment on above: Order Comment: Speci men Type: BLOOD SPECIMEN [facility] Address: [address] [place] [address] Performed By: #### 1 6128-1 #### [facility] CLIA [id number] [address] [place] [address] [place] PAP DISCLAIMER COMMENT The Pap Smear is a screening test for cervical cancer. False negative results occur with all screening tests, emphasizing the need for rescreening at recommended intervals, and clinical correlation. Normal [facility] Comment on above: Order Comment: Speci men Type: BLOOD SPECIMEN [facility] Address: [address] [place] [address] Performed By: #### 1 6128-1 #### [facility] CLIA [id number] [address] [place] [address] [place] PAP SKIN LIFTER BACON COMMENT This specimen has been analyzed by the FDA-approved [employer] System, which uses digital imaging and an enhanced artificial intelligence image analysis algorithm to identify sidhu of interest on the microscopic slide, to assist the operator helper and pathologist in evaluating cells on ThinPrep Pap tests. Following analysis, sidhu of interest on the microscopic slide selected by the algorithm are reviewed by a operator helper. If a sample requires hierarchical review, the pathologist will review the same sidhu of interest selected by the algorithm prior to final interpretation. Normal [facility] Comment on above: Order Comment: Cassiei brendan Type: BLOOD SPECIMEN [facility] Address: [address] [place] [address] Performed By: #### 1 6128-1 #### [facility] CLIA [id number] [address] [place] [address] [place] Reagin and Treponema pallidu m IgG and IgM [Interp]on 09-28-2024 T. pallidum IgG+IgM IA Ql (S) Non-Reactive Normal Nonreactive [facility] Comment on above: Order Comment: Cassiei men Type: BLOOD SPECIMENOrdering Facility: [facility] Address: [address] [place] [address] Performed By: #### 7 3752-8, 34182-0, 5195-3 ####[facility] LABCLIA [id number] [place] [address] [place] Reagin+T pallidum IgG+IgM Se rPl-Impon 09-28-2024 Reagin and Treponema pallidum IgG and IgM [Interp] Cannot exclude recent Treponemal infection if specimen collected within 7-10 days after appearance of suspect lesions or 2-3 weeks after an exposure. Clinical correlation is required. Normal [facility] Comment on above: Order Comment: Gini cardona Type: BLOOD SPECIMENOrdering Facility: [facility] Address: [address] [place] [address] Performed By: #### 7 3752-8, 45215-5, 5195-3 ####[facility] LABCLIA [id number] [place] [id number] [place] OCT OPTIC NERVE CIRRUS OU (B OTH EYES)on 09-11-2024 [facility] Radiology Study observation (narrative) [facility] VISUAL FIELD 30-2 OU (BOTH E YES)on 09-11-2024 [facility] Radiology Study observation (narrative) [facility] CNCOon 06-21-2024 CNCO Letter Text Normal [facility] CNPNon 06-14-2024 CNPN Telephone (FAMPWS) IVIS SANCHEZ ([id number]) 1990 F Date Time Provider Department 06/14/24 SHERRELL KOEHLER During your visit today, we recorded the following information about you: Mary Chaidez OCCA 06/14/2024 9:18 AM Signed ----- Message from Sherrell Koehler APRN.CNP sent at 06/14/2024 7:38 AM EST ----- Brain MRI shows no acute findings. LEMUEL Marin Gillian, OCCA 06/14/2024 9:20 AM Signed TC to patient who verbalized understanding of providers message below. JULIOCESAR Clark Allergies As of Date: 06/14/2024 Noted Allergy Reaction ADHESIVE TAPE-SILICONES 03/13/2024 2 - Rash ASA (SALICYLATES) 10/29/2008 11 - Vomiting ASPIRIN 05/05/2023 14 - Other: See Comments SULFA (SULFONAMIDE ANTIBIOTICS) 07/21/2010 7 - Swelling Date Reviewed: 05/30/2024 Reviewed by: Alejandrina Myers LPN - Fully Assessed Reason for Visit: Results [95] Cmt: MRI Brain Prescriptions as of 06/14/2024 - cholecalciferol, Vitamin D3, (VITAMIN D3) 1,250 mcg (50,000 unit) cap capsule Take 1 capsule by mouth one time a week. - sertraline (ZOLOFT) 50 mg tablet Take 1 tablet by mouth once daily. - busPIRone (BUSPAR) 5 mg tablet Take 1 tablet by mouth three times a day. Problem List As Of Date: 06/14/2024 (None) Encounter Status:Closed by MARY CHAIDEZ on 06/14/24 Normal [facility] MR Brain WO and W contrast I Von 06-13-2024 IMPRESSION: No acute findings. Minimal chronic change. Relationship Banker: ESTEBAN Transcribe Date/Time: Jun 13 2024 1:56P Dictated by : JOHN HUNT MD This examination was interpreted and the report reviewed and electronically signed by: JOHN HUNT MD on Jun 13 2024 2:02PM [facility] DIVISION OF RADIOLOGY * * *Final Report* * * DATE OF EXAM: Jun 13 2024 12:57PM [facility] 0295 - MRI BRAIN WO/W IVCON / PROCEDURE REASON: multiple diagnoses * * * * Physician Interpretation * * * * EXAMINATION: MRI BRAIN WO/W IVCON CLINICAL HISTORY: Headache. TECHNIQUE: Routine brain MRI protocol without and with contrast including diffusion images. MQ: MRBWOW_2 Contrast: 8 mL Elucirem IV COMPARISON: None. RESULT: Acute Change: There is no evidence of restricted diffusion to suggest an acute infarct. Hemorrhage: No evidence of prior parenchymal hemorrhage on the susceptibility weighted images. Mass Lesion/ Mass Effect: No evidence of an intracranial mass or extra-axial fluid collection. No abnormal parenchymal or leptomeningeal enhancement is noted following contrast administration. No significant mass effect. 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 Chronic Change: Scattered patchy areas of increased T2 and FLAIR signal are present in the supratentorial white matter which is a nonspecific finding but likely represents mild chronic microvascular ischemia. Parenchyma: No significant volume loss for age. The brain parenchyma is otherwise within normal limits of signal intensity and morphology. Ventricles: Normal caliber and morphology. Skull Base: Hypothalamic and pituitary region are grossly normal. Craniocervical junction is normal. No significant marrow replacement process. Vasculature: Major intracranial arterial structures, and dural venous sinuses show typical flow void, suggesting patency by spin echo criteria. Other: The visualized paranasal sinuses and mastoid air cells are clear. The orbits and extracranial soft tissues are unremarkable. Nonspecific lymph nodes, partially imaged within the neck. DIVISION OF RADIOLOGY Provider, [facility] - 06/13/2024 * * *Final Report* * * DATE OF EXAM: Jun 13 2024 12:57PM [facility] 0295 - MRI BRAIN WO/W IVCON / PROCEDURE REASON: multiple diagnoses * * * * Physician Interpretation * * * * EXAMINATION: MRI BRAIN WO/W IVCON CLINICAL HISTORY: Headache. TECHNIQUE: Routine brain MRI protocol without and with contrast including diffusion images. MQ: MRBWOW_2 Contrast: 8 mL Elucirem IV COMPARISON: None. RESULT: Acute Change: There is no evidence of restricted diffusion to suggest an acute infarct. Hemorrhage: No evidence of prior parenchymal hemorrhage on the susceptibility weighted images. Mass Lesion/ Mass Effect: No evidence of an intracranial mass or extra-axial fluid collection. No abnormal parenchymal or leptomeningeal enhancement is noted following contrast administration. No significant mass effect. 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 Chronic Change: Scattered patchy areas of increased T2 and FLAIR signal are present in the supratentorial white matter which is a nonspecific finding but likely represents mild chronic microvascular ischemia. Parenchyma: No significant volume loss for age. The brain parenchyma is otherwise within normal limits of signal intensity and morphology. Ventricles: Normal caliber and morphology. Skull Base: Hypothalamic and pituitary region are grossly normal. Craniocervical junction is normal. No significant marrow replacement process. Vasculature: Major intracranial arterial structures, and dural venous sinuses show typical flow void, suggesting patency by spin echo criteria. Other: The visualized paranasal sinuses and mastoid air cells are clear. The orbits and extracranial soft tissues are unremarkable. Nonspecific lymph nodes, partially imaged within the neck. IMPRESSION IMPRESSION: No acute findings. Minimal chronic change. Relationship Banker: PSCB Transcribe Date/Time: Jun 13 2024 1:56P Dictated by : JOHN HUNT MD This examination was interpreted and the report reviewed and electronically signed by: JOHN HUNT MD on Jun 13 2024 2:02PM EST [facility] Radiology Study observation (narrative) [facility] MR Brain WO and W contrast I VOrdered By: [facility]cf Provider on 06-13-2024 [facility] MRI BRAIN WO/W IVCONon 06-13 MRI BRAIN WO/W IVCON * * *Final Report* * * DATE OF EXAM: Jun 13 2024 12:57PM [facility] 0295 - MRI BRAIN WO/W IVCON / PROCEDURE REASON: multiple diagnoses * * * * Physician Interpretation * * * * EXAMINATION: MRI BRAIN WO/W IVCON CLINICAL HISTORY: Headache. TECHNIQUE: Routine brain MRI protocol without and with contrast including diffusion images. MQ: MRBWOW_2 Contrast: 8 mL Elucirem IV COMPARISON: None. RESULT: Acute Change: There is no evidence of restricted diffusion to suggest an acute infarct. Hemorrhage: No evidence of prior parenchymal hemorrhage on the susceptibility weighted images. Mass Lesion/ Mass Effect: No evidence of an intracranial mass or extra-axial fluid collection. No abnormal parenchymal or leptomeningeal enhancement is noted following contrast administration. No significant mass effect. 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 Chronic Change: Scattered patchy areas of increased T2 and FLAIR signal are present in the supratentorial white matter which is a nonspecific finding but likely represents mild chronic microvascular ischemia. Parenchyma: No significant volume loss for age. The brain parenchyma is otherwise within normal limits of signal intensity and morphology. Ventricles: Normal caliber and morphology. Skull Base: Hypothalamic and pituitary region are grossly normal. Craniocervical junction is normal. No significant marrow replacement process. Vasculature: Major intracranial arterial structures, and dural venous sinuses show typical flow void, suggesting patency by spin echo criteria. Other: The visualized paranasal sinuses and mastoid air cells are clear. The orbits and extracranial soft tissues are unremarkable. Nonspecific lymph nodes, partially imaged within the neck. IMPRESSION: No acute findings. Minimal chronic change. Relationship Banker: PSCB Transcribe Date/Time: Jun 13 2024 1:56P Dictated by : JOHN HUNT MD This examination was interpreted and the report reviewed and electronically signed by: JOHN HUNT MD on Jun 13 2024 2:02PM EST [id number] CN Normal [facility] IVIS SANCHEZ ([id number]) 1990 F Date Time Provider Department 05/31/24 [facility] During [facility] visit today, we recorded the following information about you: Fior Zamora MD 05/31/2024 7:03 AM Signed Vitamin D level severely low. Recommend 50,000 units of vitamin D weekly x 12 weeks and recheck in 3 months. Other labs normal. Alejandrina Myers LPN 05/31/2024 9:36 AM Signed Message left for patient to return call and request to speak with a nurse. DEL Iraheta Barbara, RN 05/31/2024 9:41 AM Signed Pt returns the call and notified of Dr. Zamora's instructions and prescription sent to pharmacy and of need to repeat lab in 3 months. Pt verbalizes understanding of all of the above. Allergies As of Date: 05/31/2024 Noted Allergy Reaction ADHESIVE TAPE-SILICONES 03/13/2024 2 - Rash ASA (SALICYLATES) 10/29/2008 11 - Vomiting ASPIRIN 05/05/2023 14 - Other: See Comments SULFA (SULFONAMIDE ANTIBIOTICS) 07/21/2010 7 - Swelling Date Reviewed: 05/30/2024 Reviewed by: Alejandrina Myers LPN - Fully Assessed Reason for Visit: Results [95] Primary Visit Diagnosis:Vitamin D deficiency [E55.9] Order(s):cholecalcif flex, Vitamin D3, (VITAMIN D3) 1,250 mcg (50,000 unit) cap capsuleTake 1 capsule by mouth one time a week.Disp: 12 capsuleRfl: 0 VITAMIN D 25 HYDROXY [SQVITD] Order #: [id number] FUTURE Prescriptions as of 05/31/2024 - cholecalciferol, Vitamin D3, (VITAMIN D3) 1,250 mcg (50,000 unit) cap capsule Take 1 capsule by mouth one time a week. - sertraline (ZOLOFT) 50 mg tablet Take 1 tablet by mouth once daily. - busPIRone (BUSPAR) 5 mg tablet Take 1 tablet by mouth three times a day. Problem List As Of Date: 05/31/2024 (None) Prescriptions ordered this encounter Disp Refills Start End CHOLECALCIFEROL (VITAMIN D3) 1,250 M* 12 c* 0 05/31/2024 08/29/2024 Route: ORAL Sig: Take 1 capsule by mouth one time a week. Encounter Status:Closed by BERT BROWNLEE on 05/31/24 Normal [facility] 25(OH)D3 [facility] 25-hydroxyvitamin D3 [Mass/Vol] 10.1 ng/mL Low 31.0-80.0 [facility] Comment on above: Order Comment: Speci men Type: BLOOD SPECIMEN Ordering Facility: [facility] Address: [address] [place], [place] [address] Result Comment: Clas sification of 25 OH Vitamin D status: Deficiency/Insufficiency: < or = 30 ng/ml. Sufficiency/Optimal Levels: 31-80 ng/mL Toxicity: > 100 ng/mL. Test performed by chemiluminescent immunoassay. Performed By: #### 1 6128-1 #### [facility] CLIA [id number] [address] [place] [id number] [place], [place] [id number] [facility] CNOVon 05-30-2024 CNOV Office Visit (LOWELLWS) IVIS SANCHEZ ([id number]) 1990 F Date Time Provider Department 05/30/24 10:40 AM FIOR ZAMORA During your visit today, we recorded the following information about you: Pulse Respiration Blood pressure Weight 83/minute 16/minute 116/80 88.9 kg Fior Zamora MD 05/30/2024 11:13 AM Signed Chief Complaint Patient presents with: Follow Up: 1 month- patient has not started medications yet. HPI Ivis Sanchez is a 34 year old female who presents here today for repeat evaluation for anxiety and depression. Patient started on zoloft and buspar at [facility] 1 month ago for uncontrolled anxiety and depression symptoms. Patient states that she is homeless right now and is living with her children's grandparents and does not feel wanted there. States that she has not started her medication in case it made her feel drowsy or off and she does not want to seem impaired. She has been on the Zoloft and Buspar in the past and did feel tired initially. Patient states that she has history of suicide attempt as a teenager. Tried to overdose on pills and has history of cutting. No access to weapons now and does not have plan to harm herself. Denies SI/HI. Thoughts are more along the lines that she wishes she was not around. She has 3 children and states that she would never do anything to harm herself because of what it would do to them. Going to [facility] at the counseling center on a weekly basis. Patient has emergency contact numbers. Patient states that she has just gotten section 8 for housing and is looking at places to stay today. Would like referral to social work to assist in any way they can. VICKY-7 04/25/2024 05/30/2024 VICKY-7 All Questions Feeling nervous, anxious, or on edge Nearly Everyday Nearly Everyday Nearly Everyday Not being able to stop or control worrying Nearly Everyday Nearly Everyday Nearly Everyday Worrying too much about different things Nearly Everyday Nearly Everyday Nearly Everyday Trouble relaxing Nearly Everyday Nearly Everyday Nearly Everyday Being so restless that it is hard to sit still Nearly Everyday Nearly Everyday Nearly Everyday Becoming easily annoyed or irritable Nearly Everyday Nearly Everyday Nearly Everyday Feeling afraid, as if something awful might happen Nearly Everyday Nearly Everyday Nearly Everyday VICKY-7 Score 21 21 21 Details Multiple values from one day are sorted in reverse-chronologica l order PHQ-9 04/25/2024 05/30/2024 PHQ-9 Scores Little interest or pleasure in doing things: Nearly every day Nearly every day Nearly every day Feeling down, depressed, or hopeless: Several days Several days Nearly every day Trouble falling or staying asleep, or sleeping too much Nearly every day Nearly every day Nearly every day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 real-time ultrasound of the left breast 11 o'clock region were performed. Tsang scale images of the real-time examination were reviewed. Targeted scanning was performed with attention to the immediate subareolar tissues for reported nipple discharge. No focal or suspicious sonographic findings were seen. There is a 1.1 cm x 1 cm x 0.4 cm lobulated mass with a circumscribed margin in the left breast at 11 o'clock 4 cm from the nipple. This lobulated mass is hypoechoic with an abrupt boundary and no posterior acoustic shadowing or enhancement. This correlates with mammography and ultrasound findings. Color flow imaging demonstrates that there is no vascularity present. There also is a 0.5 cm x 0.4 cm x 0.2 cm oval mass with a circumscribed margin in the left breast at 11 o'clock 1 cm from the nipple. This oval mass is hypoechoic with an abrupt boundary and no posterior acoustic shadowing or enhancement. This correlates as an incidental finding. Color flow imaging demonstrates that there is no vascularity present. IMPRESSION: SUSPICIOUS OF MALIGNANCY The 1.1 cm x 1 cm x 0.4 cm lobulated mass in the left breast at 11 o'clock resembles a fibroadenoma and is at a low suspicion for malignancy. An ultrasound guided biopsy is recommended. The 0.5 cm x 0.4 cm x 0.2 cm oval mass in the left breast at 11 o'clock resembles a complicated cyst or a fibroadenoma and is probably benign. A follow-up in 6 months is recommended. There is no abnormality seen in the left breast to correspond with the discharge from the nipple in the sub-areolar depth central to the nipple, however, clinical correlation and clinical followup are recommended. SUMMARY: Findings were discussed with the patient at the time of examination. Electronically informed consent for the recommended biopsy was explained and signed by the patient. The patient was given the biopsy scientific photographer contact information to call and schedule the biospy at her convenience. Sherrell Painter M.D., jr/roger:09/20/2023 13:48:40 Fireboat Operator(s): Emma Astorga, [facility] Ultrasound BI-RADS: 4a Suspicious abnormality - low suspicion for malignancy Multiple national specialty organizations have released breast cancer screening guidelines for women at average risk for developing breast cancer - guidelines that are based on both evidence and opinion, yet differ on when to start and how often to screen for breast cancer. With representation from Breast Imaging, Internal Medicine, Women's Health, Family Medicine, and Medical/Surgical Oncology, the [facility] has carefully reviewed the data and reached the following consensus: 1) All women should engage in shared decision-making with their providers to decide when to start and how often to screen; 2) All women should have the opportunity to start screening mammography at age 40; 3) For women ages 45-55, we recommend annual screening mammograms; 4) For women ages 55 and over, we support both the transition from an annual to a biennial interval if this aligns more with patient's values and preferences, or continuation with annual screening; 5) All women should discuss with their providers when to stop screening mammograms. Relationship Banker: Roger Transcribe Date/Time: Sep 20 2023 1:11P Dictated by : SHERRELL PAINTER MD This examination was interpreted and the report reviewed and electronically signed by: SHERRELL PAINTER MD on Sep 20 2023 1:48PM EST [id number] Normal [facility] US Breast - left limitedon 0 09-20-2023 IMPRESSION: SUSPICIOUS OF MALIGNANCY The 1.1 cm x 1 cm x 0.4 cm lobulated mass in the left breast at 11 o'clock resembles a fibroadenoma and is at a low suspicion for malignancy. An ultrasound guided biopsy is recommended. The 0.5 cm x 0.4 cm x 0.2 cm oval mass in the left breast at 11 o'clock resembles a complicated cyst or a fibroadenoma and is probably benign. A follow-up in 6 months is recommended. There is no abnormality seen in the left breast to correspond with the discharge from the nipple in the sub-areolar depth central to the nipple, however, clinical correlation and clinical followup are recommended. SUMMARY: Findings were discussed with the patient at the time of examination. Electronically informed consent for the recommended biopsy was explained and signed by the patient. The patient was given the biopsy scientific photographer contact information to call and schedule the biospy at her convenience. Sherrell Painter M.D., jr/roger:09/20/2023 13:48:40 Fireboat Operator(s): [facility]ADS: 4a Suspicious abnormality - low suspicion for malignancy Multiple national specialty organizations have released breast cancer screening guidelines for women at average risk for developing breast cancer - guidelines that are based on both evidence and opinion, yet differ on when to start and how often to screen for breast cancer. With representation from Breast Imaging, Internal Medicine, Women's Health, Family Medicine, and Medical/Surgical Oncology, the [facility] has carefully reviewed the data and reached the following consensus: 1) All women should engage in shared decision-making with their providers to decide when to start and how often to screen; 2) All women should have the opportunity to start screening mammography at age 40; 3) For women ages 45-55, we recommend annual screening mammograms; 4) For women ages 55 and over, we support both the transition from an annual to a biennial interval if this aligns more with patient's values and preferences, or continuation with annual screening; 5) All women should discuss with their providers when to stop screening mammograms. Relationship Banker: Roger Transcribe Date/Time: Sep 20 2023 1:11P Dictated by : SHERRELL PAINTER MD This examination was interpreted and the report reviewed and electronically signed by: SHERRELL PAINTER MD on Sep 20 2023 1:48PM [facility] RADIOLOGY * * *Final Report* * * DATE OF EXAM: Sep 20 2023 1:20PM LEATHA 0593 - [facility] [employer] BREAST LTD LT / PROCEDURE REASON: R93.89-Abnormal finding on radiology exam * * * * Physician Interpretation * * * * #[id number] - [facility] [employer] BREAST LTD LIMITED ULTRASOUND OF LEFT BREAST: 09/20/2023 HISTORY: R93.89-Abnormal Finding On Radiology Exam. RESULT: Comparison is made to exams dated: 07/27/2023 mammogram and 07/27/2023 ultrasound - [facility]. Color flow and real-time ultrasound of the left breast 11 o'clock region were performed. Tsang scale images of the real-time examination were reviewed. Targeted scanning was performed with attention to the immediate subareolar tissues for reported nipple discharge. No focal or suspicious sonographic findings were seen. There is a 1.1 cm x 1 cm x 0.4 cm lobulated mass with a circumscribed margin in the left breast at 11 o'clock 4 cm from the nipple. This lobulated mass is hypoechoic with an abrupt boundary and no posterior acoustic shadowing or enhancement. This correlates with mammography and ultrasound findings. Color flow imaging demonstrates that there is no vascularity present. There also is a 0.5 cm x 0.4 cm x 0.2 cm oval mass with a circumscribed margin in the left breast at 11 o'clock 1 cm from the nipple. This oval mass is hypoechoic with an abrupt boundary and no posterior acoustic shadowing or enhancement. This correlates as an incidental finding. Color flow imaging demonstrates that there is no vascularity present. [facility] Provider, [facility] [place] - 09/20/2023 * * *Final Report* * * DATE OF EXAM: Sep 20 2023 1:20PM LEATHA 0593 - [facility] US BREAST LTD LT / PROCEDURE REASON: R93.89-Abnormal finding on radiology exam * * * * Physician Interpretation * * * * #[id number] - [facility] US BREAST LTD LT LIMITED ULTRASOUND OF LEFT BREAST: 09/20/2023 HISTORY: R93.89-Abnormal Finding On Radiology Exam. RESULT: Comparison is made to exams dated: 07/27/2023 mammogram and 07/27/2023 ultrasound - [facility]. Color flow and real-time ultrasound of the left breast 11 o'clock region were performed. Tsang scale images of the real-time examination were reviewed. Targeted scanning was performed with attention to the immediate subareolar tissues for reported nipple discharge. No focal or suspicious sonographic findings were seen. There is a 1.1 cm x 1 cm x 0.4 cm lobulated mass with a circumscribed margin in the left breast at 11 o'clock 4 cm from the nipple. This lobulated mass is hypoechoic with an abrupt boundary and no posterior acoustic shadowing or enhancement. This correlates with mammography and ultrasound findings. Color flow imaging demonstrates that there is no vascularity present. There also is a 0.5 cm x 0.4 cm x 0.2 cm oval mass with a circumscribed margin in the left breast at 11 o'clock 1 cm from the nipple. This oval mass is hypoechoic with an abrupt boundary and no posterior acoustic shadowing or enhancement. This correlates as an incidental finding. Color flow imaging demonstrates that there is no vascularity present. IMPRESSION IMPRESSION: SUSPICIOUS OF MALIGNANCY The 1.1 cm x 1 cm x 0.4 cm lobulated mass in the left breast at 11 o'clock resembles a fibroadenoma and is at a low suspicion for malignancy. An ultrasound guided biopsy is recommended. The 0.5 cm x 0.4 cm x 0.2 cm oval mass in the left breast at 11 o'clock resembles a complicated cyst or a fibroadenoma and is probably benign. A follow-up in 6 months is recommended. There is no abnormality seen in the left breast to correspond with the discharge from the nipple in the sub-areolar depth central to the nipple, however, clinical correlation and clinical followup are recommended. SUMMARY: Findings were discussed with the patient at the time of examination. Electronically informed consent for the recommended biopsy was explained and signed by the patient. The patient was given the biopsy scientific photographer contact information to call and schedule the biospy at her convenience. Sherrell Painter M.D., jr/roger:09/20/2023 13:48:40 Fireboat Operator(s): Emma Astorga, [facility] Ultrasound BI-RADS: 4a Suspicious abnormality - low suspicion for malignancy Multiple national specialty organizations have released breast cancer screening guidelines for women at average risk for developing breast cancer - guidelines that are based on both evidence and opinion, yet differ on when to start and how often to screen for breast cancer. With representation from Breast Imaging, Internal Medicine, Women's Health, Family Medicine, and Medical/Surgical Oncology, the [facility] has carefully reviewed the data and reached the following consensus: 1) All women should engage in shared decision-making with their providers to decide when to start and how often to screen; 2) All women should have the opportunity to start screening mammography at age 40; 3) For women ages 45-55, we recommend annual screening mammograms; 4) For women ages 55 and over, we support both the transition from an annual to a biennial interval if this aligns more with patient's values and preferences, or continuation with annual screening; 5) All women should discuss with their providers when to stop screening mammograms. Relationship Banker: Roger Transcribe Date/Time: Sep 20 2023 1:11P Dictated by : SHERRELL PAINTER MD This examination was interpreted and the report reviewed and electronically signed by: SHERRELL PAINTER MD on Sep 20 2023 1:48PM [facility] Radiology Study observation (narrative) [facility] Breast - left limitedOrde red By: [facility] Provider on 09-20-2023 [facility] DBT Breast - bilateral diagn ostic for implanton 07-27-2023 [facility] US Breast - left limitedon 0 07-27-2023 [facility] PROLACTIN BLDon 07-07-2023 Prolactin [Mass/Vol] 16.1 ng/mL 4.5 - 2 6.8 ng/mL [facility] Emergency Department Summary on 05-29-2023 Emergency Department Summary [facility] Medical Records Department [address] [place] [address] Emergency Department Summary 05/29/23 MR#: [id number] Acct: [id number] Name: IVIS SANCHEZ ASIM Rep #: [id number] : 1990 33 From: Morena Michaels MD PCP: Care Physician,No Primary Status:DEP ER Location: ED HPI History of Present Illness Chief Complaint: Dental Detail of Chief Complaint: Sinus infection and dental pain Informant: patient Narrative Narrative: Patient presents secondary to right maxillary sinus infection as well as left dental pain. She states she was seen here in the ER about 2 and half weeks ago and diagnosed with this finding you situs. She was treated with Augmentin. She reported no improvement after the antibiotic but did not seek further treatment. Earlier this week she had a root canal on one of the molars for her left maxillary surface. She has had some increased pressure to that side and is not currently on an antibiotic. She states her pain is doing well with Tylenol and ibuprofen, but is concerned that she needs an antibiotic. She is using Afrin nasal spray. She reports a single fever with temperature measurement of 100. PFSH PFSH Medical History Anxiety Asthma Depression GERD (gastroesophageal reflux disease) Irregular heart beat Kidney stones Migraines Smoker Home Medications amoxicillin 875 mg-potassium clavulanate 125 mg tablet 875 mg (0.875 x 875-125 mg) PO Q12H #20 TABLETS 05/05/23 [Rx Last Taken Unknown] cefdinir 300 mg capsule 300 mg PO BID #20 caps 05/29/23 [Rx Last Taken Unknown] Allergy/AdvReac Type Severity Reaction Status Date / Time aspirin Allergy Hives Verified 05/29/23 15:07 iodine Allergy Hives Verified 05/29/23 15:07 Sulfa (Sulfonamide Allergy Hives Verified 05/29/23 15:07 Antibiotics) Surgical History History of History of cholecystectomy Social History Smoking Status: Current every day smoker tobacco type: cigarettes ROS ROS ED Constitutional Constitutional ED: Denies chills or fever(s) ENT ENT ED: Reports other Details: Right maxillary sinus pressure. Left-sided dental pain. ; Denies rhinorrhea or sore throat Cardiovascular Cardiovascular: Denies chest pain Respiratory/Chest Respiratory/Chest: Denies cough or dyspnea Gastrointestinal Gastrointestinal: Denies abdominal pain, nausea or vomiting Neurologic Neurologic: Denies headache(s) Psychiatric Psychiatric: Denies anxiety or depression Allergic/Immunologic Allergic/Immunologic ED: Denies lip swelling or urticaria EXAM Physical Exam Const Vital Signs: 05/29/23 15:07 Temperature 99 F Temperature Source Temporal Pulse Rate 107 H Respiratory Rate 20 H Blood Pressure 137/98 H Blood Pressure Mean 111 Pulse Ox 98 Oxygen Delivery Method Room Air Positive well nourished and well developed General Appearance ED: well developed HEENT HEENT Narrative: No facial edema or erythema. Intraoral examination reveals no significant gum edema. Posterior pharynx exam is normal. Patient does have significant tenderness with palpation of the right maxilla. Eyes EOMs intact bilaterally Chest Wall inspection of chest normal and palpation of chest normal Resp normal respiratory effort and clear to auscultation bilaterally Cardio regular rate and regular rhythm GI non-tender Palpation: soft Neuro oriented x3 and no sensory deficits noted Motor Exam: strength 5/5 throughout Psych mental status grossly normal Skin no rashes or lesions noted MDM MDM MDM Narrative Medical decision making narrative: Patient was recently on a course of Augmentin and reported no significant improvement in her sinus symptoms. Will treat her with Omnicef to cover both oral and sinus organisms. She will follow-up with her dentist and I will also give her information for ENT referral if her sinusitis is not improving. Discharge Plan Triage Chief Complaint: Dental ED Provider: Morena Michaels Dx/Rx/DC Orders Clinical Impression: Sinusitis, Pain, dental Instructions: ED Dental Pain, ED Sinusitis (Antibiotic Treatment) Prescriptions: New cefdinir 300 mg capsule 300 mg PO BID Qty: 20 0RF No Action amoxicillin-pot clavulanate [amoxicillin-pot clavulanate] 875-125 mg tablet 875 mg PO Q12H Qty: 20 0RF Primary Care Provider: Care Physician,No Primary Referrals: Fior Avila MD [Med Staff - Active Staff] - As Needed Care Physician,No Primary [Primary Care Provider] - Activity Restrictions/Additio nal Instructions: If your sinus symptoms are not improved with the second round of antibiotics, you can follow-up with ENT. Disposition Disposition: H (more content not included)... Normal [facility] Emergency Department Summary on 05-05-2023 Emergency Department Summary [facility] Medical Records Department [address] [place] [address] Emergency Department Summary 05/05/23 MR#: [id number] Acct: [id number] Name: IVIS SANCHEZ ASIM Rep #: [id number] : 1990 33 From: Giovani Ibrahim MD PCP: Care Physician,No Primary Status:REG ER Location: ED HPI History of Present Illness Chief Complaint: Dental Informant: patient Narrative Narrative: Patient presenting with a tooth ache right maxillary for the past 3 days. Gradual in onset. No obvious etiology. She states it is radiating back into her right posterior aspect of her face, head with a headache, sometimes in the ear but she has no hearing changes or otorrhea. States the pain was really worse today. She denies any rhinorrhea or congestion. No fevers or chills. No purulent nasal discharge or other discharge from her mouth or bleeding. No sore throat. PFSH PFSH Medical History Anxiety Asthma Depression GERD (gastroesophageal reflux disease) Irregular heart beat Kidney stones Migraines Smoker Home Medications amoxicillin 875 mg-potassium clavulanate 125 mg tablet 875 mg (0.875 x 875-125 mg) PO Q12H #20 TABLETS 05/05/23 [Rx Last Taken Unknown] Allergy/AdvReac Type Severity Reaction Status Date / Time aspirin Allergy Hives Verified 05/05/23 19:54 iodine Allergy Hives Verified 05/05/23 19:54 Sulfa (Sulfonamide Allergy Hives Verified 05/05/23 19:54 Antibiotics) Surgical History History of History of cholecystectomy Social History Smoking Status: Current every day smoker ROS ROS ED Constitutional Constitutional ED: Denies chills or fever(s) Eyes Eyes: Denies change in vision or double vision ENT ENT ED: Reports as per HPI, dental pain, facial pain and sinus pain; Denies throat swelling Cardiovascular Cardiovascular: Denies chest pain or palpitations Respiratory/Chest Respiratory/Chest: Denies cough or dyspnea Gastrointestinal Gastrointestinal: Denies abdominal pain, nausea or vomiting Integumentary Denies abscess or rash Neurologic Neurologic: Reports headache(s); Denies paresthesias or weakness EXAM Physical Exam Const Vital Signs: 05/05/23 19:52 Temperature 96.8 F L Temperature Source Temporal Pulse Rate 91 Respiratory Rate 24 H Blood Pressure 145/86 H Blood Pressure Mean 105 Pulse Ox 100 Oxygen Delivery Method Room Air Positive well nourished and well developed General Appearance ED: well developed and NAD HEENT HEENT Narrative: Patient does have point tenderness in 1 particular area of the right maxillary sinus which is normal-appearing externally. No nasal purulent discharge. No significant edema. Dentition is all normal appearing, gingiva is all normal appearing, and there is no dental tenderness on percussion. In palpating superior to the dentition in the periapical areas, there is no tenderness or abscess. She has no trismus. The rest of intraoral exam is normal including normal Stensen's duct bilaterally, and there is no tenderness at the parotid or swelling there. Throat: posterior oropharynx normal Eyes PERRL and EOMs intact bilaterally Neck no lymphadenopathy and supple Resp normal respiratory effort Neuro oriented x3 and CN's II-XII intact bilaterally Sensorium / Orientation: alert Gait (Neuro): normal gait Psych mental status grossly normal and thought process normal Skin no rashes or lesions noted and no wounds MDM MDM MDM Narrative Medical decision making narrative: As I discussed with the patient I do not think that this is a dental in origin. I think she has maxillary sinusitis for unknown reason along with a sinus headache. I think it is reasonable to treat her empirically with an antibiotic, but I also recommend a decongestant to see if she can drain the sinus which may give her quicker relief she is comfortable with that plan. Nursing discussed with me at discharge that the patient then told her about black nipple discharge that she has been having for months. She does not have a doctor in the region. She was referred to the next doctor on the unassigned list for primary care as well as ADVISORY INTERN regarding the nipple discharge Discharge Plan Triage Chief Complaint: Dental ED Provider: Giovani Ibrahim Dx/Rx/DC Orders Clinical Impression: Sinus headache, Nipple discharge, Right maxillary sinusitis Instructions: ED Sinus Headache, ED Sinusitis (Antibiotic Treatment) Prescriptions: New amoxicillin-pot clavulanate [amoxicillin-pot clavulanate] 875-125 mg tablet 875 mg PO Q12H Qty: 20 0RF Primary Care Provider: Care Physician,No Primary Referrals: Cole MD [Med Staff - Active Staff] (more content not included)... Normal [facility] Vital Signs Date Time Vital Sign Value Performing Clinician Jac jenkins 10-20-2024 12:03-0400 Diastolic blood pressure 80 mm[Hg] Subhash Zamarripa APRN.DEVELOPMENT ARCHITECT Work Phone: [facility] 10-20-2024 12:03-0400 Systolic blood pressure 136 mm[Hg] Subhash Zamarripa APRN.DEVELOPMENT ARCHITECT Work Phone: [facility] 10-20-2024 11:45-0400 Body mass index (BMI) [Ratio] 35.92 kg/m2 Subhash Zamarripa APRN.DEVELOPMENT ARCHITECT Work Phone: [facility] 10-20-2024 11:45-0400 Body weight 93.44 kg Subhash Zamarripa APRN.DEVELOPMENT ARCHITECT Work Phone: [facility] 10-09-2024 13:03-0400 Body mass index (BMI) [Ratio] 36.09 kg/m2 Dennise Parson APRN.DEVELOPMENT ARCHITECT Work Phone: [facility] 10-09-2024 13:03-0400 Body weight 93.89 kg Dennise Parson [employer] OFFICER.DEVELOPMENT ARCHITECT Work Phone: [facility] 10-09-2024 13:03-0400 Diastolic blood pressure 82 mm[Hg] Dennise Parson APRN.DEVELOPMENT ARCHITECT Work Phone: [facility] 10-09-2024 13:03-0400 Heart rate 79 /min Dennise Haagen [employer] OFFICER.DEVELOPMENT ARCHITECT Work Phone: [facility] 10-09-2024 13:03-0400 Respiratory rate 16 /min Dennise Haagen [employer] OFFICER.DEVELOPMENT ARCHITECT Work Phone: [facility] 10-09-2024 13:03-0400 SaO2% (BldA) [Mass fraction] 96 % Dennise Haagen [employer] OFFICER.DEVELOPMENT ARCHITECT Work Phone: [facility] 10-09-2024 13:03-0400 Systolic blood pressure 126 mm[Hg] Dennise Haagen [employer] OFFICER.DEVELOPMENT ARCHITECT Work Phone: [facility] 05-30-2024 10:28-0500 Body mass index (BMI) [Ratio] 33.26 kg/m2 Fior Zamora MD Work Phone: [facility] 05-30-2024 10:28-0500 Body weight 88.91 kg Fior Zamora MD Work Phone: [facility] 05-30-2024 10:28-0500 Diastolic blood pressure 80 mm[Hg] Fior Zamora MD Work Phone: [facility] 05-30-2024 10:28-0500 Heart rate 83 /min Fior Zamora MD Work Phone: [facility] 05-30-2024 10:28-0500 Respiratory rate 16 /min Fior Zamora MD Work Phone: [facility] 05-30-2024 10:28-0500 SaO2% (BldA) [Mass fraction] 99 % Fior Zamora MD Work Phone: [facility] 05-30-2024 10:28-0500 Systolic blood pressure 116 mm[Hg] Fior Zamora MD Work Phone: [facility] 04-25-2024 08:34-0500 Body height 163.5 cm Sherrell Koehler [employer] OFFICER.DEVELOPMENT ARCHITECT Work Phone: [facility] 04-25-2024 08:34-0500 Body mass index (BMI) [Ratio] 32.55 kg/m2 Sherrell Podlogar [employer] OFFICER.DEVELOPMENT ARCHITECT Work Phone: [facility] 04-25-2024 08:34-0500 Body weight 87 kg Sherrell Podlogar [employer] OFFICER.DEVELOPMENT ARCHITECT Work Phone: [facility] 04-25-2024 08:34-0500 Diastolic blood pressure 88 mm[Hg] Sherrell Podlogar [employer] OFFICER.DEVELOPMENT ARCHITECT Work Phone: [facility] 04-25-2024 08:34-0500 Heart rate 88 /min Sherrell Podlogar [employer] OFFICER.DEVELOPMENT ARCHITECT Work Phone: [facility] 04-25-2024 08:34-0500 Respiratory rate 18 /min Sherrell Podlogar [employer] OFFICER.DEVELOPMENT ARCHITECT Work Phone: [facility] 04-25-2024 08:34-0500 SaO2% (BldA) [Mass fraction] 97 % Sherrell Podlogar [employer] OFFICER.DEVELOPMENT ARCHITECT Work Phone: [facility] 04-25-2024 08:34-0500 Systolic blood pressure 132 mm[Hg] Sherrell Podlogar [employer] OFFICER.DEVELOPMENT ARCHITECT Work Phone: [facility] 08-17-2023 14:50-0400 Body height 162.6 cm Isma Torrez MD Work Phone: [facility] 08-17-2023 14:50-0400 Body temperature 98.4 [degF] Isma Torrez MD Work Phone: [facility] 08-17-2023 14:50-0400 Body weight 88.63 kg Isma Torrez MD Work Phone: [facility] 08-17-2023 14:50-0400 Diastolic blood pressure 78 mm[Hg] Isma Torrez MD Work Phone: [facility] 08-17-2023 14:50-0400 Heart rate 103 /min Isma Torrez MD Work Phone: [facility] 08-17-2023 14:50-0400 SaO2% (BldA) [Mass fraction] 97 % Isma Torrez MD Work Phone: [facility] 08-17-2023 14:50-0400 Systolic blood pressure 128 mm[Hg] Isma Torrez MD Work Phone: [facility] 07-07-2023 14:25-0500 Body height 162.6 cm Subhashmoon Myerstaylor [employer] OFFICER.DEVELOPMENT ARCHITECT Work Phone: [facility] 07-07-2023 14:25-0500 Body weight 86.64 kg Subhash Myerstaylor [employer] OFFICER.DEVELOPMENT ARCHITECT Work Phone: [facility] 07-07-2023 14:25-0500 Diastolic blood pressure 86 mm[Hg] Subhash Myersury [employer] OFFICER.DEVELOPMENT ARCHITECT Work Phone: [facility] 07-07-2023 14:25-0500 Systolic blood pressure 132 mm[Hg] Subhash Myersury [employer] OFFICER.DEVELOPMENT ARCHITECT Work Phone: [facility] 05-29-2023 15:07-0500 Body height 160.02 cm [facility] 05-29-2023 15:07-0500 Body mass index (BMI) [Ratio] 35.8 kg/m2 [facility] 05-29-2023 15:07-0500 Body temperature 99 [degF] [facility] 05-29-2023 15:07-0500 Body weight 91.8 kg [facility] 05-29-2023 15:07-0500 Diastolic blood pressure 98 mm[Hg] [facility] 05-29-2023 15:07-0500 Heart rate 107 /min [facility] 05-29-2023 15:07-0500 Respiratory rate 20 /min [facility] 05-29-2023 15:07-0500 SaO2% (BldA) [Mass fraction] 98 % [facility] 05-29-2023 15:07-0500 Systolic blood pressure 137 mm[Hg] [facility] 05-05-2023 22:06-0500 Diastolic blood pressure 80 mm[Hg] [facility] 05-05-2023 22:06-0500 Heart rate 79 /min [facility] 05-05-2023 22:06-0500 Respiratory rate 16 /min [facility] 05-05-2023 22:06-0500 SaO2% (BldA) [Mass fraction] 99 % [facility] 05-05-2023 22:06-0500 Systolic blood pressure 135 mm[Hg] [facility] 05-05-2023 19:52-0500 Body height 160.02 cm [facility] 05-05-2023 19:52-0500 Body mass index (BMI) [Ratio] 35.2 kg/m2 [facility] 05-05-2023 19:52-0500 Body temperature 96.8 [degF] [facility] 05-05-2023 19:52-0500 Body weight 90.3 kg [facility] Encounters Encounter Date Encounter Type Care Provider Facility Start: 03-19-2025 [facility] Facility :[facility] Start: 03-15-2025 End: 03-15-2025 [facility] Facility:[facility] Start: 03-06-2025 End: 03-06-2025 [facility] Facility:[facility] Start: 11-13-2024 End: 11-14-2024 [facility] Facility:[facility] Start: 11-08-2024 End: 11-17-2024 [facility] Work Phone: Neurology Start: 10-23-2024 End: 10-26-2024 Follow-up encounter Subhash Zamarripa APRN.CNP Work Phone: OB/Gynecology Start: 10-20-2024 End: 10-20-2024 Patient encounter procedure Subhash Zamarripa APRN.CNP Work Phone: OB/Gynecology Comment on above: Abnormal uterine ble eding (Primary Dx) Start: 10-20-2024 End: 10-20-2024 ambulatory [facility] Facility:[facility] Start: 10-09-2024 End: 10-09-2024 Patient encounter procedure Dennise Parson APRN.CNP Work Phone: Family Medicine [place] Comment on above: Fatigue, unspecified type (Primary Dx); Chronic pain of both knees; Plantar wart; Nicotine dependence, cigarettes, uncomplicated; Gastroesophageal reflux disease, unspecified whether esophagitis present; Condyloma Start: 10-09-2024 End: 10-09-2024 ambulatory DENNISE PARSON Facility:[facility] Start: 10-06-2024 End: 10-06-2024 Patient encounter procedure [facility] OB/Gynecology Start: 10-06-2024 End: 10-06-2024 ambulatory [employer] Work Phone: OB/Gynecology Start: 09-29-2024 End: 10-11-2024 Follow-up encounter Subhash Zamarripa APRN.CNP Work Phone: OB/Gynecology Comment on above: Results Start: 09-28-2024 End: 09-28-2024 ambulatory FIOR ZAMORA Facility:[facility] Start: 09-28-2024 Encounter for gynecological examination (general) (routine) without abnormal findings SUBHASH ZAMARRIPA [facility] Start: 09-11-2024 End: 09-11-2024 Patient encounter procedure Jasmyne Robert OD Work Phone: Ophthalmology Comment on above: Drusen of both optic discs (Primary Dx); Punctate keratitis of right eye; Hyperopia of both eyes Start: 09-11-2024 End: 09-11-2024 ambulatory FIOR ZAMORA Facility:[facility] Start: 06-14-2024 End: 06-14-2024 Telephone encounter Sherrell Koehler APRN.DEVELOPMENT ARCHITECT Work Phone: [facility] [place] Comment on above: Results (MRI Brain ) Start: 06-13-2024 End: 06-13-2024 ambulatory SHERRELL KOEHLER Facility:[facility] Start: 06-13-2024 End: 06-13-2024 Subsequent hospital visit by physician Mri Radio [facility] (I-Stat/1.5t) Work Phone: Radiology Comment on above: Nonintractable heada jose, unspecified chronicity pattern, unspecified headache type [R51.9] Start: 05-31-2024 End: 05-31-2024 Telephone encounter Fior Zamora MD Work Phone: [facility] Comment on above: Results Start: 05-30-2024 End: 05-31-2024 Telephone encounter Franco Sundeep [employer] [facility] Start: 05-30-2024 End: 05-30-2024 ambulatory FIOR ZAMORA Facility:[facility] Start: 05-30-2024 End: 05-30-2024 Patient encounter procedure Fior Zamora MD Work Phone: [facility] Comment on above: Anxiety and depressi on (Primary Dx); Homeless family Start: 05-01-2024 End: 05-04-2024 Telephone encounter Sherrell Koehler APRN.CNP Work Phone: [facility] Comment on above: Results Start: 04-28-2024 End: 04-28-2024 ambulatory FIOR ZAMORA Facility:[facility] Start: 04-25-2024 End: 04-25-2024 Patient encounter procedure Sherrell Koehler APRN.DEVELOPMENT ARCHITECT Work Phone: [facility] Comment on above: Encounter to [facility] (Primary Dx); Special screening examination for viral disease; Screening for depression; Encounter for screening examination for other mental health and behavioral disorders; Urge incontinence; Nonintractable headache, unspecified chronicity pattern, unspecified headache type; Blurry vision, bilateral; Falls frequently; Dizziness; Subjective weakness; Anxiety and depression; Marijuana use; Tobacco abuse Start: 04-25-2024 End: 04-25-2024 ambulatory FIOR ZAMORA Facility:[facility] Start: 03-13-2024 End: 03-13-2024 Patient encounter procedure Jasmnye Robert OD Work Phone: Ophthalmology Comment on above: Punctate keratitis o f right eye (Primary Dx); Drusen of both optic discs; Hyperopia of both eyes Start: 01-12-2024 End: 01-12-2024 Emergency department patient visit No Primary Care Physician Facility:[facility] Start: 11-29-2023 E-mail encounter fro m caregiver Stanislawdevon McgowanRodneynona RUIZ.DEVELOPMENT ARCHITECT Work Phone: Breast Center Start: 11-29-2023 Patient encounter procedure Tye Mcgowannona HDEZ Work Phone: [facility] Comment on above: Breast Center Appoin tment Start: 11-07-2023 End: 11-07-2023 Emergency department patient visit No Primary Care Physician Facility:[facility] Start: 10-28-2023 End: 10-28-2023 Emergency department patient visit No Primary Care Physician Facility:[facility] Start: 10-15-2023 Telephone encounter Tamika Horta RN Mammography Comment on above: Results Start: 10-13-2023 Telephone encounter Tye Rodney APRN.DEVELOPMENT ARCHITECT Work Phone: [facility] Comment on above: Appointment Start: 10-13-2023 ambulatory UNKNOWN PROVIDER Facili ty:[facility] Start: 10-13-2023 End: 10-13-2023 Subsequent hospital visit by physician Procedure [facility]amm[facility] Work Phone: Mammography Comment on above: Abnormal finding on breast imaging [R92.8] Start: 09-20-2023 End: 09-20-2023 Orders Only Sherrell Painter MD Work Phone: Mammography Comment on above: Abnormal finding on breast imaging (Primary Dx) Abnormal finding on radiology exam [R93.89] Start: 08-19-2023 ambulatory Darby Armijo Work Phone: Mammography Comment on above: Radio Imaging Study Comments Abnormal finding on radiology exam (Primary Dx) Start: 08-19-2023 Patient encounter procedure Darby Dominique MD Work Phone: [facility] Start: 08-18-2023 End: 03-14-2024 Telephone encounter Isma Torrez MD Work Phone: General Surgery Comment on above: Appointment Start: 08-17-2023 End: 08-17-2023 Patient encounter procedure Isma Torrez MD Work Phone: General Surgery Comment on above: Abnormal finding on breast imaging (Primary Dx) Start: 07-28-2023 Telephone encounter Subhash lloyd APRN.DEVELOPMENT ARCHITECT Work Phone: OB/Gynecology Comment on above: Results Start: 07-27-2023 End: 07-27-2023 Subsequent hospital visit by physician [facility] Work Phone: Radiology Comment on above: Breast pain [N64.4] Start: 07-07-2023 End: 07-07-2023 Patient encounter procedure Subhash Zamarripa APRN.CNP Work Phone: OB/Gynecology Comment on above: Breast pain (Primary Dx); Discharge from breast; Lesion of skin of breast; Pruritus of nipple Start: 05-29-2023 End: 05-29-2023 [facility] Start: 05-05-2023 End: 05-05-2023 [facility] Procedures Date Procedure Procedure Detail Performing Clinician Start: 10-20-2024 UA DIP,URINE HCG (POC) Subhash Zamarripa APRN.DEVELOPMENT ARCHITECT Work Phone: Start: 10-06-2024 Us pelvic nonobstetr ic real-time image complete Subhash Zamarripa APRN.CNP Work Phone: Start: 09-11-2024 End: 09-11-2024 Visual field xm uni/bi w/interp extended exam Jasmyne Robert OD Work Phone: Start: 06-13-2024 Mri brain brain stem w/o w/contrast material Sherrell Birminghamlogalyce [employer] POLICE OFFICER.DEVELOPMENT ARCHITECT Work Phone: Start: 04-25-2024 Urnls dip stick/tabl et rgnt auto w/o microscopy Sherrell Podlogalyce [employer] POLICE OFFICER.DEVELOPMENT ARCHITECT Work Phone: Start: 04-25-2024 Adult depression scr eening assessment Sherrell Podlogalyce [employer] POLICE OFFICER.DEVELOPMENT ARCHITECT Work Phone: Start: 03-13-2024 Computerized ophthal olman imaging optic nerve Jasmynefernando Robert OD Work Phone: Start: 10-13-2023 Bx breast w/device 1 st lesion ultrasound guid Sherrell Painter MD Work Phone: Start: 10-13-2023 Digital breast tomosynthesis unilateral Sherrell Painter MD Work Phone: Start: 09-20-2023 Us breast uni real t leno with image limited Darby Dominique MD Work Phone: Start: 07-27-2023 Digital breast tomosynthesis bilateral Subhash Zamarripa APRN.DEVELOPMENT ARCHITECT Work Phone: Start: 07-27-2023 Us breast uni real t leno with image limited Subhash Zamarripa APRN.DEVELOPMENT ARCHITECT Work Phone: Plan of Treatment Date Care Activity Detail Author Start: 09-28-2029 Screening for malignant neoplasm of cervix Cervical Cancer Screening [facility] Start: 09-28-2025 End: 09-28-2025 Patient encounter procedure 09/28/2025 9:45 AM EDT Office Visit OB/Gynecology [address] [place] [address] Subhash Zamarripa APRN.DEVELOPMENT ARCHITECT [address] [place] [address] annual OB/Gynecology Comment on above: annual Start: 04-25-2025 Anxiety Screening Anxiety Screening [facility] Start: 04-25-2025 Covid-19 Vaccine ( season) Covid-19 Vaccine ( season) [facility] Comment on above: Postponed from 01/09/2024 (Declined at t his time) Start: 04-25-2025 Depression Screening Depression Screening [facility] Start: 04-25-2025 Hepatitis B Vaccine (1 of 3 - 19+ 3-dose series) Hepatitis B Vaccine (1 of 3 - 19+ 3-dose series) [facility] Comment on above: Postponed from 2007 (Declined at t his time) Start: 04-25-2025 Pneumococcal vaccination Pneumococcal Vaccine (1 of 2 - PCV) [facility] Comment on above: Postponed from 2007 (Declined at t his time) Start: 04-25-2025 Urine microalbumin profile DTaP,Tdap,Td Vaccine (1 - Tdap) [facility] Comment on above: Postponed from 11/09/2013 (Declined at t his time) Start: 03-15-2025 End: 03-15-2025 Patient encounter procedure 03/15/2025 9:00 AM EST Office Visit [facility] Ophthalmology [address] [place] [address] Jasmyne Robert, OD [address] [place] [address] 6 MTH F/U for complete with 30-2 (30 min). Ophthalmology Comment on above: 6 MTH F/U for complete with 30-2 (30 min ). Start: 01-08-2025 Influenza vaccination [facility] Start: 11-28-2024 End: 11-28-2024 Nursing evaluation of patient and report 11/28/2024 9:00 AM EDT Nurse Visit OB/Gynecology [address] [place] [address] Wstr, Nurse Director [employer] [facility] [address] [place] [id number] 2MO 2nd HPV OB/Gynecology Comment on above: 2MO 2nd HPV Start: 11-14-2024 End: 11-14-2024 Patient encounter procedure 11/14/2024 2:00 PM EDT Office Visit Neurology [address] [place] [address] hsat Neurology Comment on above: hsat Start: 11-06-2024 Influenza vaccination Influenza Vaccine (#1) [facility] Comment on above: Postponed from 01/09/2024 (Declined at t his time) Start: 10-20-2024 End: 10-20-2024 Patient encounter procedure 10/20/2024 11:45 AM EDT Office Visit OB/Gynecology [address] [place] [address] Subhash Zamarripa APRN.DEVELOPMENT ARCHITECT [address] [place] [address] EMB OB/Gynecology Comment on above: EMB Start: 09-19-2024 End: 09-19-2024 Patient encounter procedure 09/19/2024 9:00 AM EDT Office Visit [facility] [address] [place] [address] Dennise Parson APRN.DEVELOPMENT ARCHITECT [address] [place] [address] est care, ok per [facility] Comment on above: est care, ok per [facility] Start: 09-11-2024 End: 09-11-2024 Patient encounter procedure Ophthalmology Comment on above: 6 month f/u -OCT nerve and dilation 6 month f/u -OCT ner ve, HVF, and dilation Start: 08-29-2024 End: 11-28-2024 25-hydroxyvitamin D3 [Mass/volume] in Serum or Plasma VITAMIN D 25 HYDROXY Lab Routine Vitamin D deficiency Expected: 08/29/2024, Expires: 11/28/2024 [facility] Work Phone: Comment on above: Expected: 08/29/2024, Expires: Start: 06-21-2024 End: 06-21-2024 Patient encounter procedure 06/21/2024 12:20 PM EST Office Visit Family Medicine [place] [address] [place] [address] Fior Zamora MD [address] [place] [address] 2 week follow up [facility] Comment on above: 2 week follow up Start: 06-13-2024 End: 06-13-2024 Patient encounter procedure 06/13/2024 12:30 PM EST Appointment Radiology [address] [place] [address] Nonintractable headache, unspecified chronicity pattern, unspecified headache type [R51.9] Radiology Comment on above: Nonintractable headache, unspecified chr onicity pattern, unspecified headache type [R51.9] Start: 06-13-2024 End: 06-13-2024 Patient encounter procedure 06/13/2024 10:40 AM EST Office Visit Family Medicine [place] [address] [place] [address] Fior Zamora MD [address] [place] [address] 2 week follow up [facility] Comment on above: 2 week follow up Start: 05-30-2024 End: 08-29-2024 25-hydroxyvitamin D3 [Mass/volume] in Serum or Plasma [facility] Comment on above: Expected: 05/30/2024, Expires: Start: 05-30-2024 End: 08-29-2024 Cobalamin (Vitamin B12) [Mass/volume] in Serum or Plasma [facility] Comment on above: Expected: 05/30/2024, Expires: Start: 05-30-2024 End: 08-29-2024 Thyrotropin [Units/volume] in Serum or Plasma [facility] Work Phone: Comment on above: Expected: 05/30/2024, Expires: Start: 05-30-2024 End: 05-30-2024 Patient encounter procedure 05/30/2024 10:40 AM EST Office Visit Family Medicine [place] [address] [place] [address] Fior Zamora MD [address] [facility] [place] [address] 1 month follow up [facility] Comment on above: 1 month follow up Start: 05-29-2024 End: 05-29-2024 Patient encounter procedure 05/29/2024 10:40 AM EST Office Visit Family Medicine [place] [address] [facility] [place] [address] Fior Zamora MD [address] [facility] [place] [address] 1 month follow up [facility] Lenny Meyer Comment on above: 1 month follow up Start: 04-25-2024 End: 07-25-2024 CBC W Auto Differential panel - Blood COMPLETE BLOOD COUNT AND DIFFERENTIAL Lab Routine Encounter to establish care Expected: 04/25/2024, Expires: 07/25/2024 [facility] Comment on above: Expected: 04/25/2024, Expires: Start: 04-25-2024 End: 07-25-2024 Comprehensive metabolic 2000 panel - Serum or Plasma COMPREHENSIVE METABOLIC PANEL Lab Routine Encounter to establish care Expected: 04/25/2024, Expires: 07/25/2024 [facility] Comment on above: Expected: 04/25/2024, Expires: Start: 04-25-2024 End: 07-25-2024 Hepatitis C virus Ab [Presence] in Serum HEPATITIS C ANTIBODY IA WITH CONFIRMATION Lab Routine Special screening examination for viral disease Expected: 04/25/2024, Expires: 07/25/2024 [facility] Comment on above: Expected: 04/25/2024, Expires: Start: 04-25-2024 End: 07-25-2024 HIV 1+2 Ab [Presence] in Serum or Plasma by Immunoassay HIV 1/2 COMBO WITH REFLEX TO DIFFERENTIATION Lab Routine Special screening examination for viral disease Expected: 04/25/2024, Expires: 07/25/2024 [facility] Comment on above: Expected: 04/25/2024, Expires: Start: 04-25-2024 End: 07-25-2024 Lipid 1996 panel - Serum or Plasma LIPID PANEL BASIC Lab Routine Encounter to establish care Expected: 04/25/2024, Expires: 07/25/2024 [facility] Work Phone: Comment on above: Expected: 04/25/2024, Expires: Start: 04-25-2024 End: 04-25-2024 Patient encounter procedure 04/25/2024 8:40 AM EST Office Visit [facility] Lenny Meyer [address] [place] [address] Sherrell Koehler APRN.DEVELOPMENT ARCHITECT [address] [place] [address] [facility] Family [facility] [place] Comment on above: [facility] Start: 01-09-2024 Covid-19 Vaccine ( season) Covid-19 Vaccine ( season) [facility] Start: 01-09-2024 Influenza vaccination [facility] Start: 05-29-2023 [facility] Start: 05-10-2023 Behavioral Health Screening Behavioral Health Screening [facility] Start: 05-10-2023 Depression Assessment Depression Assessment [facility] Start: 05-05-2023 [facility] Start: 01-08-2023 Covid-19 Vaccine ( season) Covid-19 Vaccine ( season) [facility] Start: 01-08-2023 Influenza [facility] Start: 2018 Screening for malignant neoplasm of cervix HPV Testing [facility] Start: 11-09-2013 Urine microalbumin profile DTaP,Tdap,Td Vaccine (1 - Tdap) [facility] Start: 10-29-2013 Screening for malignant neoplasm of cervix Pap Testing [facility] Start: 10-30-2011 Screening for malignant neoplasm of cervix Cervical Cancer Screening [facility] Start: 2007 Hepatitis B Vaccine (1 of 3 - 19+ 3-dose series) Hepatitis B Vaccine (1 of 3 - 19+ 3-dose series) [facility] Start: 2006 Anxiety Screening Anxiety Screening [facility] Start: 2006 Depression Screening Depression Screening [facility] Start: 2006 Hepatitis C screening Hepatitis C Screening [facility] Start: 1994 Pneumococcal vaccination Pneumococcal Vaccine (1 of 2 - PCV) [facility] Start: 1988 Covid-19 Vaccine (#1) Covid-19 Vaccine (#1) [facility] Start: 1988 Hepatitis B Vaccine (1 of 3 - 3-dose series) Hepatitis B Vaccine (1 of 3 - 3-dose series) [facility] Endometrial bx w/wo endocervix bx w/o dilat spx ENDOMETRIAL BIOPSY Procedures Routine Abnormal uterine bleeding Ordered: 10/11/2024 [facility] Work Phone: Comment on above: Ordered: 10/11/2024 Endometrial bx w/wo endocervix bx w/o dilat spx ENDOMETRIAL BIOPSY Procedures Routine Abnormal uterine bleeding Ordered: 10/20/2024 [facility] Work Phone: Comment on above: Ordered: 10/20/2024 End: 10-09-2025 HOME SLEEP APNEA TEST (HSAT) HOME SLEEP APNEA TEST (HSAT) Procedures Routine Fatigue, unspecified type 1 Occurrences starting 10/09/2024 until 10/09/2025 [facility] Work Phone: Comment on above: 1 Occurrences starting 10/09/2024 until 10/09/2025 End: 08-05-2024 MG Breast - bilateral Diagnostic YOJANA DIAGNOSTIC BILATERAL Radiology Routine Breast pain Discharge from breast 1 Occurrences starting 07/07/2023 until 08/05/2024 [facility] Work Phone: Comment on above: 1 Occurrences starting 07/07/2023 until 08/05/2024 End: 09-17-2024 MG Breast - left Diagnostic for implant YOJANA DIAGNOSTIC LEFT Radiology Routine Abnormal finding on radiology exam 1 Occurrences starting 08/19/2023 until 09/17/2024 [facility] Work Phone: Comment on above: 1 Occurrences starting 08/19/2023 until 09/17/2024 End: 05-25-2025 MR Brain WO and W contrast IV MRI BRAIN WO/W IVCON Radiology Routine Nonintractable headache, unspecified chronicity pattern, unspecified headache type Blurry vision, bilateral Falls frequently Dizziness Subjective weakness 1 Occurrences starting 04/25/2024 until 05/25/2025 [facility] Comment on above: 1 Occurrences starting 04/25/2024 until 05/25/2025 Patient Education [facility] Work Phone: Patient referral [facility] Work Phone: SURGICAL PATHOLOGY [facility] Work Phone: Comment on above: Release Upon Ordering for 1 Occurrences starting 10/13/2023, 1 completed Tissue Pathology bio psy report SURGICAL PATHOLOGY Lab Routine Abnormal uterine bleeding 10/20/2024 12:19 PM EDT [facility] End: 08-05-2024 US Breast - left limited US BREAST LTD LEFT Radiology Routine Breast pain Discharge from breast 1 Occurrences starting 07/07/2023 until 08/05/2024 [facility] Work Phone: Comment on above: 1 Occurrences starting 07/07/2023 until 08/05/2024 End: 09-17-2024 US Breast - left limited US BREAST LTD LEFT Radiology Routine Abnormal finding on radiology exam 1 Occurrences starting 08/19/2023 until 09/17/2024 [facility] Work Phone: Comment on above: 1 Occurrences starting 08/19/2023 until 09/17/2024 End: 08-05-2024 US Breast - right limited US BREAST LTD RIGHT Radiology Routine Breast pain Discharge from breast 1 Occurrences starting 07/07/2023 until 08/05/2024 [facility] Work Phone: Comment on above: 1 Occurrences starting 07/07/2023 until 08/05/2024 End: 09-15-2024 US Guidance for biopsy of Breast - left US BIOPSY BREAST LEFT Radiology Routine Abnormal finding on breast imaging 1 Occurrences starting 08/17/2023 until 09/15/2024 [facility] Work Phone: Comment on above: 1 Occurrences starting 08/17/2023 until 09/15/2024 End: 10-19-2024 US Guidance for biopsy of Breast - left US BIOPSY BREAST LEFT Radiology Routine Abnormal finding on breast imaging 1 Occurrences starting 09/20/2023 until 10/19/2024 [facility] Work Phone: Comment on above: 1 Occurrences starting 09/20/2023 until 10/19/2024 End: 11-08-2025 XR Knee - bilateral 4 Views XR KNEE GENERAL 4V AP BOTH/PA BOTH/LAT/MERC BILATERAL Radiology Routine Chronic pain of both knees 1 Occurrences starting 10/09/2024 until 11/08/2025 [facility] Comment on above: 1 Occurrences starting 10/09/2024 until 11/08/2025 [facility] Immunizations Immunization Date Immunization Notes Care Provider Deena briggs 09-28-2024 Human Papillomavirus 9-valent vaccine [facility] 11-08-2013 TD(adult) unspecifie d formulation [facility] 11-08-2013 tetanus and diphther ia toxoids, adsorbed, preservative free, for adult use (2 Lf of tetanus toxoid and 2 Lf of diphtheria toxoid) [facility] 04-10-2009 novel influenza-H1N1 -09, all formulations Subhash Zamarripa APRN.[facility] Work Phone: [facility] Work Phone: Payers Date Payer Category Payer Medicaid [id number] 2023 Medicaid [id number] 2023 Self-pay Unknown [facility] [employer] [facility] [id number] Unknown [id number] Unknown [id number] Unknown [id number] [id number] Unknown [id number] Unknown [id number] [id number] Social History Date Type Detail Facility Start: 05-05-2023 End: 05-29-2023 Tobacco smoking status NHIS Unknown if ever smoked [facility] Start: 1990 Sex Assigned At Female [facility] Start: 09-16-2012 End: 03-13-2024 Tobacco smoking status NHIS Smokes tobacco daily [facility] Work Phone: History of tobacco use Cigarette Smoker [facility] Work Phone: Start: 09-16-2012 End: 09-19-2024 Cigarettes smoked current (pack per day) - Reported 0.5 [facility] Start: 07-07-2023 End: 10-20-2024 Alcohol intake Ex-drinker (finding) [facility] Start: 07-07-2023 End: 09-19-2024 Tobacco use panel [facility] National Score (1-10 0), lower number is lower risk 92 [facility] Start: 1990 Sex Assigned At Not on file [facility] Has the [employer] threatened to shut off services in your home in past 12Mo Yes [facility] Do you belong to any clubs or organizations such as islam groups, unions, fraternal or athletic groups, or school groups? No [facility] Are you now , , , , never or living with a partner? [facility] How often to you hav e a drink containing alcohol? Never [facility] How hard is it for y ou to pay for the very basics like food, housing, medical care, and heating Somewhat hard [facility] Do you feel stress - tense, restless, nervous, or anxious, or unable to sleep at night because your mind is troubled all the time - these days [OSQ] Very much [facility] (I/We) worried whewest er (my/our) food would run out before (I/we) got money to buy more. Sometimes true [facility] Clinical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 Home, Self Care What to do if you have Problems For any increased pain, shortness of breath, bleeding, nausea or vomiting, chestpain, or any unexpected problems, contact your Primary Care Provider. Call [facility] ([phone]) or report to the closest Emergency Room. Call 911 if necessary. 05/05/232130 <Electronically signed by Giovani Ibrahim MD> Cosigner Signature (if applicable): CC: Frida Quiroga; Dr. Abram Carvajal MD; No Primary Care Physician ~ Signed [facility] Work Phone: Evaluation noteNo assessment information available [facility] Work Phone: Evaluation note* Diagnosis Breast pain- Primary Mastodynia Discharge from breast Lesion of skin of breast Unspecified breast disorder Pruritus of nipple [facility] pain M[facility]odynia [facility]charge [facility] Breast pain Mastodynia Discharge from breast [facility] Diagnosis Abnormal finding on breast imaging- Primary Other (abnormal) findings on radiological examination of breast [facility] Diagnosis Nipple discharge- Primary Other sign and symptom in breast [facility] Diagnosis Abnormal finding on radiology exam- Primary Other nonspecific (abnormal) findings on radiological and other examinations of body structure [facility] Diagnosis Abnormal finding on breast imaging- Primary Other (abnormal) findings on radiological examination of breast [facility] Diagnosis Abnormal finding on radiology exam Other nonspecific (abnormal) findings on radiological and other examinations of body structure [facility] Abnormal finding on breast imaging Other (abnormal) findings on radiological examination of breast [facility] Diagnosis Punctate keratitis of right eye- Primary Punctate keratitis Drusen of both optic discs Drusen of optic disc Hyperopia of both eyes [facility] Diagnosis Encounter to establish care- Primary Other reasons for seeking consultation Special screening examination for viral disease Special screening examination for unspecified viral disease Screening for depression Encounter for screening examination for other mental health and behavioral disorders Urge incontinence Nonintractable headache, unspecified chronicity pattern, unspecified headache type Blurry vision, bilateral Other specified visual disturbances Falls frequently Personal history of fall Dizziness Dizziness and giddiness Subjective weakness Other malaise and fatigue Anxiety and depression Dysthymic disorder Marijuana use Cannabis abuse, unspecified Tobacco abuse Tobacco use disorder [facility] Diagnosis Anxiety and depression- Primary Dysthymic disorder Homeless family Lack of housing [facility] Diagnosis Vitamin D deficiency- Primary Unspecified vitamin D deficiency [facility] Diagnosis Nonintractable headache, unspecified chronicity pattern, unspecified headache type Blurry vision, bilateral Other specified visual disturbances Falls frequently Personal history of fall Dizziness Dizziness and giddiness Subjective weakness Other malaise and fatigue [facility] Diagnosis Drusen of both optic discs- Primary Drusen of optic disc Punctate keratitis of right eye Punctate keratitis Hyperopia of both eyes [facility] Diagnosis Abnormal uterine bleeding Unspecified disorder of menstruation and other abnormal bleeding from female genital tract [facility] Diagnosis Fatigue, unspecified type- Primary Chronic pain of both knees Plantar wart Nicotine dependence, cigarettes, uncomplicated Gastroesophageal reflux disease, unspecified whether esophagitis present Condyloma Condyloma acuminatum [facility] Diagnosis Bacterial vaginosis- Primary Vaginitis and vulvovaginitis, unspecified Abnormal uterine bleeding Unspecified disorder of menstruation and other abnormal bleeding from female genital tract [facility] Diagnosis Abnormal uterine bleeding- Primary Unspecified disorder of menstruation and other abnormal bleeding from female genital tract [facility] Additional Instructions May try using a nasal spray containing oxymetazoline or phenylephrine, spray 2 sprays up into your right nostril, after 10 or 15 minutes, hold your nose shut and blow gently into you feel your ears gently pop, and hold for a breath as long as you can, and this may help pop your sinus open and allow quick drainage and pain relief.[facility] Work Phone: Hospital Discharge instructions Additional Instructions If your sinus symptoms are not improved with the second round of antibiotics, you can follow-up with ENT.[facility] Work Phone: Reason for referral (narrative)* Diagnostic Procedure Only (Routine) - Pending Review Specialty Diagnoses / Procedures Referred By French t Referred To Contact [facility] Diagnoses Breast pain Discharge from breast Procedures US BREAST LTD RIGHT US BREAST UNI REAL TIME WITH IMAGE LIMITED Subhash Zamarripa APRN.CNP [address] [place] [address] [facility] [address] [place] [address] Referral ID Status Reason Start Date Expiration Date Visits Requested Visits Authorized [id number] Pending Review Auto-Generat ed Referral 07/07/2023 08/05/2024 1 1 * Diagnostic Procedure Only (Routine) - Pending Review Specialty Diagnoses / Procedures Referred By French t Referred To Contact [facility] Diagnoses Breast pain Discharge from breast Procedures US BREAST LTD LEFT US BREAST UNI REAL TIME WITH IMAGE LIMITED Subhash Zamarripa APRN.CNP [address] [place] [address] [facility] [address] [place] [address] Referral ID Status Reason Start Date Expiration Date Visits Requested Visits Authorized [id number] Pending Review Auto-Generat ed Referral 07/07/2023 08/05/2024 1 1 * Diagnostic Procedure Only (Routine) - Pending Review Specialty Diagnoses / Procedures Referred By French t Referred To Contact [facility] Diagnoses Breast pain Discharge from breast Procedures [facility]JANA DIAGNOSTIC BILATERAL DIAGNOSTIC MAMMOGRAPHY COMPUTER-AIDED DETCJ BI Subhash Zamarripa APRN.CNP [address] [place] [address] [facility] [address] [place] [address] Referral ID Status Reason Start Date Expiration Date Visits Requested Visits Authorized [id number] Pending Review Auto-Generat ed Referral 07/07/2023 08/05/2024 1 1 [facility] for referral (narrative)* Diagnostic Procedure Only (Routine) - Closed Specialty Diagnoses / Procedures Referred By French t Referred To Contact [facility] Diagnoses Breast pain Discharge from breast Procedures US BREAST LTD LEFT US BREAST UNI REAL TIME WITH IMAGE LIMITED Subhash Zamarripa APRN.CNP [address] [place] [address] [facility] [address] [place] [address] Referral ID Status Reason Start Date Expiration Date V isits Requested Visits Authorized [id number] Closed Auto-Generate d Referral 07/08/2023 05/09/2024 1 1 [facility] for referral (narrative)* Diagnostic Procedure Only (Routine) - Pending Review Specialty Diagnoses / Procedures Referred By French duran Referred To Contact [facility] Diagnoses Abnormal finding on breast imaging Procedures US BIOPSY BREAST LEFT BX BREAST W/DEVICE 1ST LESION ULTRASOUND GUID Isma Torrez MD [address] [address] [facility] [address] [place] [address] Referral ID Status Reason Start Date Expiration Date Visits Requested Visits Authorized [id number] Pending Review Auto-Generat ed Referral 08/17/2023 09/15/2024 1 1 T [facility] for referral (narrative)* Diagnostic Procedure Only (Routine) - Pending Review Specialty Diagnoses / Procedures Referred By French t Referred To Contact [facility] Diagnoses Abnormal finding on radiology exam Procedures YOJANA DIAGNOSTIC LEFT DIAGNOSTIC MAMMOGRAPHY COMPUTER-AIDED DETCJ UNI Darby Dominique MD [address] [place] [address] [facility] [address] [place] [address] Referral ID Status Reason Start Date Expiration Date Visits Requested Visits Authorized [id number] Pending Review Auto-Generat ed Referral 08/19/2023 09/17/2024 1 1 T [facility] for referral (narrative)* Diagnostic Procedure Only (Routine) - Pending Review Specialty Diagnoses / Procedures Referred By Contac t Referred To Contact [facility] Diagnoses Abnormal finding on radiology exam Procedures US BREAST LTD LEFT US BREAST UNI REAL TIME WITH IMAGE LIMITED Darby Dominique MD [address] [place] [address] [facility] [address] [place] [phone] Referral ID Status Reason Start Date Expiration Date Visits Requested Visits Authorized [id number] Pending Review Auto-Generat ed Referral 08/19/2023 09/17/2024 1 1 T [facility] for referral (narrative)* Diagnostic Procedure Only (Routine) - Pending Review Specialty Diagnoses / Procedures Referred By Contac t Referred To Contact [facility] Diagnoses Abnormal finding on breast imaging Procedures US BIOPSY BREAST LEFT BX BREAST W/DEVICE 1ST LESION ULTRASOUND Sherrell Lynne MD [address] [place] [address] [facility] [address] [place] [phone] Referral ID Status Reason Start Date Expiration Date Visits Requested Visits Authorized [id number] Pending Review Auto-Generat ed Referral 09/20/2023 10/19/2024 1 1 [facility] for referral (narrative)* Diagnostic Procedure Only (Routine) - Closed Specialty Diagnoses / Procedures Referred By Contac t Referred To Contact [facility] Diagnoses Abnormal finding on radiology exam Procedures US BREAST LTD LEFT US BREAST UNI REAL TIME WITH IMAGE LIMITED Darby Dominique MD [address] [place] [address] [facility] [address] [place] [address] Referral ID Status Reason Start Date Expiration Date V isits Requested Visits Authorized [id number] Closed Auto-Generate d Referral 08/20/2023 05/09/2024 1 1 [facility] for referral (narrative)* Diagnostic Procedure Only (Routine) - Closed Specialty Diagnoses / Procedures Referred By Contac t Referred To Contact [facility] Diagnoses Abnormal finding on breast imaging Procedures US BIOPSY BREAST LEFT BX BREAST W/DEVICE 1ST LESION ULTRASOUND Sherrell Lynne MD [address] [place] [address] [facility] [address] [place] [phone] Referral ID Status Reason Start Date Expiration Date V isits Requested Visits Authorized [id number] Closed Auto-Generate d Referral 09/27/2023 05/09/2024 1 1 [facility] for visit Narrative* Diagnostic Procedure Only (Routine) - Closed Specialty Diagnoses / Procedures Referred By Contac t Referred To Contact [facility] Diagnoses Breast pain Discharge from breast Procedures YOJANA DIAGNOSTIC BILATERAL DIAGNOSTIC MAMMOGRAPHY COMPUTER-AIDED DETCJ Subhash Dominguez APRN.TORSTEN [address] [place] [address] [facility] [address] [place] [address] Referral ID Status Reason Start Date Expiration Date V isits Requested Visits Authorized [id number] Closed Auto-Generate d Referral 07/08/2023 05/09/2024 1 1 [facility] for visit Narrative* Diagnostic Procedure Only (Routine) - Closed Specialty Diagnoses / Procedures Referred By Contac t Referred To Contact [facility] Diagnoses Abnormal finding on radiology exam Procedures YOJANA DIAGNOSTIC LEFT DIAGNOSTIC MAMMOGRAPHY COMPUTER-AIDED DETCJ Darby Eagle MD [address] [place] [address] [facility] [address] [place] [address] Referral ID Status Reason Start Date Expiration Date V isits Requested Visits Authorized [id number] Closed Auto-Generate d Referral 08/20/2023 05/09/2024 1 1 [facility] for visit Narrative* Diagnostic Procedure Only (Routine) - Closed Specialty Diagnoses / Procedures Referred By Contac t Referred To Contact [facility] Diagnoses Abnormal finding on breast imaging Procedures US BIOPSY BREAST LEFT BX BREAST W/DEVICE 1ST LESION ULTRASOUND Sherrell Lynne MD [address] [place] [address] [facility] [address] [place] [address] Referral ID Status Reason Start Date Expiration Date V isits Requested Visits Authorized [id number] Closed Auto-Generate d Referral 09/27/2023 05/09/2024 1 1 [facility] for visit Narrative* Diagnostic Procedure Only (Routine) - Closed Specialty Diagnoses / Procedures Referred By Contac t Referred To Contact [facility] Diagnoses Abnormal uterine bleeding Procedures PELVIC US I US PELVIC NONOBSTETRIC REAL-TIME IMAGE COMPLETE Subhash Zamarripa APRN.DEVELOPMENT ARCHITECT [address] [place] [address] Phone: tel: fax: [facility] [address] [place] [address] Referral ID Status Reason Start Date Expiration Date V isits Requested Visits Authorized [id number] Closed Auto-Generate d Referral 09/28/2024 05/09/2025 1 1 [facility] Chief Complaint and Reason for Visit Chief Complaint Dental Pain Chief Complaint Dental Pain DENTAL Advance Directives No Advanced Directives Records Found Advance Directive Response Recorded Date/ Time Living Will No May 05 9:21pm Power of Technical Services Assistant No May 05, 2023 9:21pm Advance Directive Response Recorded Date/ Time Living Will No May 29 3:18pm Power of Technical Services Assistant No May 29, 2023 3:18pm Reason for Referral Specialty Diagnoses / Procedures Referred By Contac t Referred To Contact General Surgery Diagnoses Nipple discharge Procedures CONSULT TO GENERAL SURGERY OFFICE/OUTPATIENT [facility] 60 MINUTES Subhash Zamarripa APRN.DEVELOPMENT ARCHITECT [address] [place] [address] Referral ID Status Reason Start Date Expiration Date Visits Requested Visits Authorized [id number] Authorized PCP Requested Referral 07/28/2023 07/27/2024 1 1 Specialty Diagnoses / Procedures Referred By Contac t Referred To Contact [facility] Diagnoses Nonintractable headache, unspecified chronicity pattern, unspecified headache type Blurry vision, bilateral Falls frequently Dizziness Subjective weakness Procedures MRI BRAIN WO/W IVCON MRI BRAIN BRAIN STEM W/O W/CONTRAST MATERIAL Podlogar, Sherrell, [employer] POLICE OFFICER.DEVELOPMENT ARCHITECT [address] [place] [address] [place] [id number] Referral ID Status Reason Start Date Expiration Date Visits Requested Visits Authorized [id number] New Request Auto-Generat ed Referral 05/25/2025 1 1 Referral ID Status Reason Start Date Expiration Date V isits Requested Visits Authorized [id number] Closed Auto-Generate d Referral 06/05/2024 08/04/2024 1 1 Summary Purpose Family History No Family History Records FoundNo Family History Records FoundNo Family History Records Found Additional Source Comments Care Teams (unrecognized sec tion and content) Team Status: Active Member Role Status Dates No Primary Care Physician Family Provider Active No Primary Care Physician Primary Care Provider Active Team Status: Inactive Member Role Status Dates No Primary Care Physician Primary Care Provider Active Dr. Giovani Ibrahim MD Emergency Provider Active Team Status: Inactive Member Role Status Dates No Primary Care Physician Primary Care Provider Active Dr. Morena Michaels MD Emergency Provider Active Team Status: Inactive Member Role Status Dates No Primary Care Physician Primary Care Provider Active Dr. Giovani Ibrahim MD Attending Provider, Emergency Provider Active Board Machine Set Up Operator Relationship Specialty Start Date End Date Fior Zamora MD [address] [place] [address] PCP - General Family Medicine 04/25/24 Podlogar, Sherrell, [employer] POLICE OFFICER.DEVELOPMENT ARCHITECT [address] [place] [address] Family Medicine 04/25/24 Board Machine Set Up Operator Relationship Specialty Start Date End Date Fior Zamora MD [address] [place] [id number] PCP - General Family Medicine 04/25/24 Podlogar, JOSEPH Wynne.DEVELOPMENT ARCHITECT [address] [place] [address] Family Medicine 04/25/24 Board Machine Set Up Operator Relationship Specialty Start Date End Date Fior Zamora MD [address] [place] [address] PCP - General Family Medicine 04/25/24 Podlogar, JOSEPH Wynne.DEVELOPMENT ARCHITECT [address] [place] [address] Family Medicine 04/25/24 Board Machine Set Up Operator Relationship Specialty Start Date End Date Fior Zamora MD [address] [place] [address] PCP - General Family Medicine 04/25/24 Podlogar, JOSEPH Wynne.DEVELOPMENT ARCHITECT [address] [place] [address] Family Medicine 04/25/24 Board Machine Set Up Operator Relationship Specialty Start Date End Date Fior Zamora MD [address] [place] [address] PCP - General Family Medicine 04/25/24 Podlogar, JOSEPH Wynne.DEVELOPMENT ARCHITECT [address] [place] [address] Family Medicine 04/25/24 Board Machine Set Up Operator Relationship Specialty Start Date End Date Fior Zamora MD [address] [place] [address] PCP - General Family Medicine 04/25/24 Podlogar, Sherrell, [employer] POLICE OFFICER.DEVELOPMENT ARCHITECT [address] [place] [address] Family Medicine 04/25/24 Podlogar, Sherrell, [employer] POLICE OFFICER.DEVELOPMENT ARCHITECT [address] [place] [address] Malt House Kiln Operator [facility] 07/21/24 Virginia Maria [employer] POLICE OFFICER.DEVELOPMENT ARCHITECT [address] [facility], [place] [address] [facility] [facility]n [facility] 07/31/24 Board Machine Set Up Operator Relationship Specialty Start Date End Date Fior Zamora MD [address] [place] [place] [address] PCP - General Family Medicine 04/25/24 10/08/24 Podlogar, Sherrell, [employer] POLICE OFFICER.DEVELOPMENT ARCHITECT [address] [place] [address] Family Medicine 04/25/24 Podlogar, Sherrell, [employer] POLICE OFFICER.DEVELOPMENT ARCHITECT [address] [place] [address] [facility] 07/21/24 Board Machine Set Up Operator Relationship Specialty Start Date End Date Dennise Parson, [employer] POLICE OFFICER.DEVELOPMENT ARCHITECT [address] [place] [address] PCP - General Family Medicine 10/09/24 PodlogarSherrell APRN.DEVELOPMENT ARCHITECT [address] [place] [address] Family Medicine 04/25/24 Podlogar, JOSEPH Wynne.DEVELOPMENT ARCHITECT [address] [place] [address] Malt House Kiln Operator Family [facility] 07/21/24 Board Machine Set Up Operator Relationship Specialty Start Date End Date Fior Zamora MD [address] [place] [address] PCP - General Family Medicine 04/25/24 10/08/24 Dennise Parson APRN.DEVELOPMENT ARCHITECT [address] [place] [address] PCP - General Family Medicine 10/09/24 Podlogar, JOSEPH Wynne.DEVELOPMENT ARCHITECT [address] [place] [address] Family Medicine 04/25/24 PodlogarSherrell APRN.DEVELOPMENT ARCHITECT [address] [place] [address] Malt House Kiln Operator [facility] 07/21/24 Board Machine Set Up Operator Relationship Specialty Start Date End Date Dennise Parson APRN.DEVELOPMENT ARCHITECT [address] [place] [address] PCP - General Family Medicine 10/09/24 PodlogarSherrell APRN.DEVELOPMENT ARCHITECT [address] [place] [address] Family Medicine 04/25/24 PodlogarSherrell APRN.DEVELOPMENT ARCHITECT [address] [place] [address] Malt House Kiln Operator [facility] 07/21/24 Board Machine Set Up Operator Relationship Specialty Start Date End Date Dennise Parson APRN.DEVELOPMENT ARCHITECT [address] [place] [address] PCP - General Family Medicine 10/09/24 PodlogarSherrell APRN.DEVELOPMENT ARCHITECT [address] [place] [address] Family Medicine 04/25/24 Podlogar, Sherrell, [employer] POLICE OFFICER.DEVELOPMENT ARCHITECT [address] [place] [address] [facility] 07/21/24 Board Machine Set Up Operator Relationship Specialty Start Date End Date Dennise Parson, [employer] POLICE OFFICER.DEVELOPMENT ARCHITECT [address] [place] [address] PCP - General Family Medicine 10/09/24 PodlogarSherrell, [employer] POLICE OFFICER.DEVELOPMENT ARCHITECT [address] [place] [address] Family Medicine 04/25/24 PodlogarSherrell, [employer] POLICE OFFICER.DEVELOPMENT ARCHITECT [address] [place] [address] [facility] 07/21/24 Goals (unrecognized section and content) Goals may be documented in a n alternate sectionGoals may be documented in an alternate section Source Comments (unrecognize d section and content) In the event this informatio n is protected by the Federal Confidentiality of Alcohol and Drug Abuse Patient Records regulations: The Federal rules restrict any use of the information to criminally investigate or prosecute any alcohol or drug abuse patient.[facility] the event this information is protected by the Federal Confidentiality of Alcohol and Drug Abuse Patient Records regulations: The Federal rules restrict any use of the information to criminally investigate or prosecute any alcohol or drug abuse patient.[facility] HospitalIn the event this information is protected by the Federal Confidentiality of Alcohol and Drug Abuse Patient Records regulations: The Federal rules restrict any use of the information to criminally investigate or prosecute any alcohol or drug abuse patient.[facility] the event this information is protected by the Federal Confidentiality of Alcohol and Drug Abuse Patient Records regulations: The Federal rules restrict any use of the information to criminally investigate or prosecute any alcohol or drug abuse patient.[facility] HospitalIn the event this information is protected by the Federal Confidentiality of Alcohol and Drug Abuse Patient Records regulations: The Federal rules restrict any use of the information to criminally investigate or prosecute any alcohol or drug abuse patient.[facility] HospitalIn the event this information is protected by the Federal Confidentiality of Alcohol and Drug Abuse Patient Records regulations: The Federal rules restrict any use of the information to criminally investigate or prosecute any alcohol or drug abuse patient.[facility] HospitalIn the event this information is protected by the Federal Confidentiality of Alcohol and Drug Abuse Patient Records regulations: The Federal rules restrict any use of the information to criminally investigate or prosecute any alcohol or drug abuse patient.[facility] HospitalIn the event this information is protected by the Federal Confidentiality of Alcohol and Drug Abuse Patient Records regulations: The Federal rules restrict any use of the information to criminally investigate or prosecute any alcohol or drug abuse patient.[facility] HospitalIn the event this information is protected by the Federal Confidentiality of Alcohol and Drug Abuse Patient Records regulations: The Federal rules restrict any use of the information to criminally investigate or prosecute any alcohol or drug abuse patient.[facility] HospitalIn the event this information is protected by the Federal Confidentiality of Alcohol and Drug Abuse Patient Records regulations: The Federal rules restrict any use of the information to criminally investigate or prosecute any alcohol or drug abuse patient.[facility] HospitalIn the event this information is protected by the Federal Confidentiality of Alcohol and Drug Abuse Patient Records regulations: The Federal rules restrict any use of the information to criminally investigate or prosecute any alcohol or drug abuse patient.[facility] HospitalIn the event this information is protected by the Federal Confidentiality of Alcohol and Drug Abuse Patient Records regulations: The Federal rules restrict any use of the information to criminally investigate or prosecute any alcohol or drug abuse patient.[facility] HospitalIn the event this information is protected by the Federal Confidentiality of Alcohol and Drug Abuse Patient Records regulations: The Federal rules restrict any use of the information to criminally investigate or prosecute any alcohol or drug abuse patient.[facility] HospitalIn the event this information is protected by the Federal Confidentiality of Alcohol and Drug Abuse Patient Records regulations: The Federal rules restrict any use of the information to criminally investigate or prosecute any alcohol or drug abuse patient.[facility] HospitalIn the event this information is protected by the Federal Confidentiality of Alcohol and Drug Abuse Patient Records regulations: The Federal rules restrict any use of the information to criminally investigate or prosecute any alcohol or drug abuse patient.[facility] HospitalIn the event this information is protected by the Federal Confidentiality of Alcohol and Drug Abuse Patient Records regulations: The Federal rules restrict any use of the information to criminally investigate or prosecute any alcohol or drug abuse patient.[facility] HospitalIn the event this information is protected by the Federal Confidentiality of Alcohol and Drug Abuse Patient Records regulations: The Federal rules restrict any use of the information to criminally investigate or prosecute any alcohol or drug abuse patient.[facility] HospitalIn the event this information is protected by the Federal Confidentiality of Alcohol and Drug Abuse Patient Records regulations: The Federal rules restrict any use of the information to criminally investigate or prosecute any alcohol or drug abuse patient.[facility] HospitalIn the event this information is protected by the Federal Confidentiality of Alcohol and Drug Abuse Patient Records regulations: The Federal rules restrict any use of the information to criminally investigate or prosecute any alcohol or drug abuse patient.[facility] HospitalIn the event this information is protected by the Federal Confidentiality of Alcohol and Drug Abuse Patient Records regulations: The Federal rules restrict any use of the information to criminally investigate or prosecute any alcohol or drug abuse patient.[facility] HospitalIn the event this information is protected by the Federal Confidentiality of Alcohol and Drug Abuse Patient Records regulations: The Federal rules restrict any use of the information to criminally investigate or prosecute any alcohol or drug abuse patient.[facility] HospitalIn the event this information is protected by the Federal Confidentiality of Alcohol and Drug Abuse Patient Records regulations: The Federal rules restrict any use of the information to criminally investigate or prosecute any alcohol or drug abuse patient.[facility] HospitalIn the event this information is protected by the Federal Confidentiality of Alcohol and Drug Abuse Patient Records regulations: The Federal rules restrict any use of the information to criminally investigate or prosecute any alcohol or drug abuse patient.[facility] HospitalIn the event this information is protected by the Federal Confidentiality of Alcohol and Drug Abuse Patient Records regulations: The Federal rules restrict any use of the information to criminally investigate or prosecute any alcohol or drug abuse patient.[facility] HospitalIn the event this information is protected by the Federal Confidentiality of Alcohol and Drug Abuse Patient Records regulations: The Federal rules restrict any use of the information to criminally investigate or prosecute any alcohol or drug abuse patient.[facility] HospitalIn the event this information is protected by the Federal Confidentiality of Alcohol and Drug Abuse Patient Records regulations: The Federal rules restrict any use of the information to criminally investigate or prosecute any alcohol or drug abuse patient.[facility] HospitalIn the event this information is protected by the Federal Confidentiality of Alcohol and Drug Abuse Patient Records regulations: The Federal rules restrict any use of the information to criminally investigate or prosecute any alcohol or drug abuse patient.[facility] HospitalIn the event this information is protected by the Federal Confidentiality of Alcohol and Drug Abuse Patient Records regulations: The Federal rules restrict any use of the information to criminally investigate or prosecute any alcohol or drug abuse patient.[facility] HospitalIn the event this information is protected by the Federal Confidentiality of Alcohol and Drug Abuse Patient Records regulations: The Federal rules restrict any use of the information to criminally investigate or prosecute any alcohol or drug abuse patient.[facility] HospitalIn the event this information is protected by the Federal Confidentiality of Alcohol and Drug Abuse Patient Records regulations: The Federal rules restrict any use of the information to criminally investigate or prosecute any alcohol or drug abuse patient.[facility] Reason for Visit (unrecogniz ed section and content) Reason Comments Breast Problem Reason Comments Radiology US Specialty Diagnoses / Procedures Referred By Coryac t Referred To Contact [facility] Diagnoses Breast pain Discharge from breast Procedures US BREAST LTD LEFT US BREAST UNI REAL TIME WITH IMAGE LIMITED Subhash Zamarripa APRN.DEVELOPMENT ARCHITECT [address] [place] [address] [facility] [address] [place] [address] Referral ID Status Reason Start Date Expiration Date V isits Requested Visits Authorized [id number] Closed Auto-Generate d Referral 07/08/2023 05/09/2024 1 1 Reason Comments Consult left breast pain Reason Comments Results Reason Comments Radio Imaging Study Comments Reason Comments Results Reason Comments Appointment Reason Comments Yearly Exam Reason Comments Establish Care Reason Comments Follow Up 1 month- patient has not started medications yet. 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.DEVELOPMENT ARCHITECT [address] [place] [address] [place] [id number] Referral ID Status Reason Start Date Expiration Date V isits Requested Visits Authorized [id number] Closed Auto-Generate d Referral 06/05/2024 08/04/2024 1 1 Reason Comments Results MRI Brain Reason Comments [place] Of Optic Disc Follow Up Reason Onset Date Comments Results 09/29/2024 Reason Comments Endometrial Biopsy Specialty Diagnoses / Procedures Referred By Contac t Referred To Contact [facility] Diagnoses Abnormal uterine bleeding Procedures ENDOMETRIAL BIOPSY ENDOMETRIAL BX W/WO ENDOCERVIX BX W/O DILAT SPX Subhash Zamarripa, [employer].DEVELOPMENT ARCHITECT [address] [place] [address] Phone: tel: fax: [facility] [address] [place] [id number] Referral ID Status Reason Start Date Expiration Date V isits Requested Visits Authorized [id number] Closed Auto-Generate d Referral 10/11/2024 05/09/2025 1 1 INFORMATION SOURCE (unrecogn ized section and content) DATE CREATED AUTHOR 10/16/2023 [facility] DATE CREATED AUTHOR AUTHOR'S ORGANIZ ATION 02/04/2024 [facility] DATE CREATED AUTHOR AUTHOR'S ORGANIZ ATION 03/20/2025 [facility] FOR RECORDS PERTAINING TO PATIENTS WHO ARE OR HAVE BEEN ENROLLED IN A CHEMICAL DEPENDENCY/SUBSTANCEABUSE PROGRAM, SOME INFORMATION MAY BE OMITTED. This clinical summary was aggregated from multiple sources. Caution should be exercised in using it in the provision of clinical care. This summary normalizes information from multiple sources, and as a consequence, information in this document may materially change the coding, format and clinical context of patient data. In addition, data may be omitted in some cases. CLINICAL DECISIONS SHOULD BE BASED ON THE PRIMARY CLINICAL RECORDS. [facility] provides no warranty or guarantee of the accuracy or completeness of information in this document.
[2025-05-05 16:02] VITALS: PULSE 83; O2SAT 96
[2025-05-05 16:22] VITALS: BP 132/73; PULSE 83; RESP 20; TEMP 36.6; O2SAT 99
== END 2025-05-05 16:27 | disposition home or self-care (01) ==
PROVIDERS: Emergency Provider Emergency Medicine; PCP Registered Nurse; Visit Provider Emergency Medicine
DX: B34.9 Viral infection, unspecified (principal); F17.210 Nicotine dependence, cigarettes, uncomplicated; Z86.16 Personal history of COVID-19
CPT/HCPCS: 71046; 87631; 99282